=== PATIENT | female | born 1995 | race Hispanic/Latino ===

== ENCOUNTER 2024-02-16 17:38 | Emergency (ER) | payer OTHER, SELFPAY ==
--- NOTE | ~2024-02-16 | XR_ITS ---
EXAM: XR shoulder LT min 2V DATE: 02/16/2024 18:34 HISTORY: shoulder pain . COMPARISON: None available. FINDINGS: Normal mineralization. No fracture or dislocation. No lytic or blastic lesion. Joint space s are maintained. No erosion or periosteal change. Soft tissues within normal limits. IMPRESSION: No acute osseous finding in the left shoulder. Reviewed, dictated and finalized at location K.
--- NOTE | ~2024-02-16 | XR_ITS ---
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 RESULT: Lines, tubes, and devices: None. Lungs and pleura: Clear. Cardiomediastinal silhouette: Normal. Other: No acute osseous or upper abdominal finding. IMPRESSION: No acute cardiopulmonary process. Reviewed, dictated and finalized at location K.
--- NOTE | 2024-02-16 17:40 | ECG_ITS ---
Test Date: 2024-02-16 17:56:00 Measurements Intervals [place] Rate: 96 P: 51 IL: 142 QRS: 1 QRSD: 84 T: 30 QT: 338 QTc: 427 Interpretive Statements SINUS RHYTHM LOW QRS VOLTAGE IN PRECORDIAL LEADS [QRS DEFLECTION < 1.0 mV IN CHEST LEADS] No previous ECG available for comparison Electronically Signed On 02-17-2024 11:31:18 CDT by Bharathi Gomez M.D.
[2024-02-16 17:55] VITALS: BP 126/85; PULSE 100; RESP 14; TEMP 36.7; O2SAT 10
[2024-02-16 17:59] LABS: Basophils Absolute Auto 0.1 K/mm3 (0.0-0.1); Basophils Percent Auto 0.9 % (0.2-1.2); Eosinophils Absolute Auto 0.2 K/mm3 (0-0.3); Eosinophils Percent Auto 3.1 % (0-4.4); Hematocrit 41.7 % (37.0-47.0); Hemoglobin 13.9 g/dL (12.0-15.0); Immature Granulocyte Absolute 0.02 K/mm3 (0.00-0.031); Immature Granulocyte Percent A 0.3 % (0-0.5); Lymphocytes Absolute Auto 1.46 K/mm3 (0.9-3.2); Lymphocytes Percent Auto 22.8 % (18.3-44.2); Mean Corpuscular HGB Conc 33.3 g/dl (32-36); Mean Corpuscular Hemoglobin 30.1 pg (26-34); Mean Corpuscular Volume 90.3 fl (80-100); Monocytes Absolute Auto 0.4 K/mm3 (0.1-0.6); Monocytes Percent Auto 5.5 % (2.6-8.5); Neutrophils Absolute Auto 4.3 K/mm3 (1.3-6.7); Neutrophils Percent Auto 67.4 % (45.5-73.1); Platelet Count Result 273 k/mm3 (150-375); Red Blood Count 4.62 M/mm3 (4.2-5.4); Red Cell Distribution Width 12.9 % (11.5-14.5); White Blood Count 6.4 K/mm3 (4.5-10.0)
[2024-02-16 18:10] LABS: Alanine Aminotransferase 22 U/L (6-35); Albumin Level 4.7 g/dL (3.5-5.1); Alkaline Phosphatase 65 U/L (38-126); Anion Gap 10 mmol/L (4-12); Aspartate Amino Transferase 28 U/L (14-36); Bilirubin,Total 0.4 mg/dL (0.2-1.3); Blood Urea Nitrogen 7 mg/dL (7-17); Calcium 9.2 mg/dL (8.4-10.2); Carbon Dioxide 28 mmol/L (22-30); Chloride 102 mmol/L (98-107); Estimated Glomerular Filt Rate > 60; Glucose 132 mg/dL (65-110); Lipase 83 U/L (23-300); Potassium 3.4 mmol/L (3.4-5.0); Prothrombin Time 13.4 Seconds (11.1-14.7); Sodium 140 mmol/L (137-145)
[2024-02-16 18:11] LABS: Partial Thromboplastin Time 27.9 Seconds (22.3-36.8)
--- NOTE | 2024-02-16 18:20 | ED.CHESTPAIN ---
HPI - Chest Pain General Chief Complaint: Chest Pain Stated Complaint: chest pain Time Seen by Provider: 02/16/24 17:44 History of Present Illness HPI narrative: 28-year-old female with no past medical history presents to the emergency department for left-sided chest pain and arm pain for 1 day. Patient states the pain started yesterday with arm pain and then started today with chest pain. States the chest pain started while she was feeding her baby and sitting down. She states the pain is worse when she moves her upper extremity or chest. She reports associated shortness of breath. Denies nausea or vomiting, personal her cardiac history, smoking. reports her mother has a history of her disease. She denies hemoptysis, cough or congestion, fever, lower extremity edema. She has no prior history of VTE. She denies injury or trauma or chest or arm. patient is Indonesian-speaking. Related Data Allergies Allergy/AdvReac Type Severity Reaction Status Date / Time No Known Allergies Allergy Verified 02/16/24 18:04 Review of Systems Review of Systems: All systems reviewed & are unremarkable except as noted in HPI and below Exam Narrative: GENERAL: Well-appearing, well-nourished, and in no acute distress. HEAD: Normocephalic, atraumatic. EYES: PERRLA and EOMI. ENT: Nares clear, no rhinorrhea or epistaxis. Mucous membranes moist. NECK: Supple. CHEST: Clear to auscultation. No respiratory distress. Tenderness to the left chest wall extending into the left shoulder with no crepitus, step-offs or deformities HEART: Regular rate and rhythm. No murmur heard. Normal peripheral pulses. ABDOMEN: Soft, nontender, nondistended, normal active bowel sounds. EXTREMITIES: diffuse tenderness to palpation of the left shoulder and distal clavicle with full active and passive range of motion. Tenderness with anterior flexion and abduction. Radial pulse 2 +. Sensation intact. Radial, medial and ulnar nerves are intact. Negative Homans bilaterally SKIN: Warm, dry, no rash. NEURO: No focal deficits. Alert and oriented x3 Course Vital Signs Vital signs: Vital Signs Temperature 98.1 F 02/16/24 17:55 Pulse Rate 100 02/16/24 17:55 Respiratory Rate 14 02/16/24 17:55 Blood Pressure 126/85 02/16/24 17:55 Pulse Oximetry 10 L 02/16/24 17:55 Temperature 98.1 F 02/16/24 17:55 Pulse Rate 100 02/16/24 17:55 Respiratory Rate 14 02/16/24 17:55 Blood Pressure 126/85 02/16/24 17:55 Pulse Oximetry 10 L 02/16/24 17:55 Oxygen Delivery Room Air 02/16/24 18:04 MDM - Chest Pain MDM Narrative Medical decision making narrative: 28-year-old Indonesian-speaking female presents to the emergency department for left sided chest pain and arm pain for 1 day. See HPI for further history. Triage vitals are stable. exam is significant for tenderness to the left side of the chest wall extending the left shoulder tenderness to the shoulder, worse with range of motion. She has no injury or trauma to this area. She is neurovascularly intact. CBC reveals no leukocytosis or anemia. Chemistries are unremarkable. EKG shows sinus rhythm, normal W[place] interval, normal QRS duration, normal QTC, no ischemic changes. Troponin is undetectable. Lipase is normal. is negative. Chest x-ray and left shoulder pain unremarkable. EKG skin is brown with a normal W[place] interval, normal QRS duration, normal QTC, no ischemic changes. Troponin undetectable. workup discussed with the patient. She received Toradol with improvement. Suspect her symptoms are secondary to MSK etiology. This is relayed to her. Ibuprofen sent to pharmacy. Encouraged close PCP follow-up. Strict ED return precautions discussed. She is agreeable to plan verbalized understanding. Discharged in stable condition. Lab Data 02/16/24 17:51 02/16/24 17:51 Labs: Lab Results 02/16/24 02/16/24 02/16/24 Range/Units 17:51 18:19 18
[2024-02-16 18:22] LABS: Troponin I < 0.012 ng/mL (0.000-0.034)
[2024-02-16 18:27] LABS: BEDSIDEPREGUCG Negative (Negative)
[2024-02-16 18:52] LABS: Add Urine Microscopic? YES; Appearance Urine Clear (Clear); Bacteria Urine None Seen /hpf; Bilirubin Urine Negative (Negative); Blood Urine 3+ (Negative); Color Urine Yellow (Yellow); Glucose Urine UA Negative (Negative); Ketones Urine Negative (Negative); Leukocyte Esterase Ur Negative LEU/UL (Negative); Nitrate Urine Negative (Negative); Non Pathogenic Casts 0-2; Protein Urine Negative (Negative); RBC Urine 0-2 /hpf (0-2); Specific Grav Ur 1.008 (1.001-1.035); Squamous Epithelial Cell Urine Occasional /hpf (Few); Urobilinogen Urine 0.2 mg/dL (<2.0); WBC Urine 0-5 /hpf (0-3); pH Urine 5.5 (5.0-9.0)
[2024-02-16 19:18] VITALS: BP 116/70; PULSE 77; RESP 16; TEMP 36.9; O2SAT 100
[2024-02-16] MEDS: KETOROLAC 15 MG/ML VIAL (*BKC) IV PUSH (19:18)
== END 2024-02-16 19:22 | disposition home or self-care (01) ==
PROVIDERS: Emergency Medicine; Emergency Provider Physician Assistant; PCP Emergency Medicine
DX: R07.89 Other chest pain (principal); M25.512 Pain in left shoulder
CPT/HCPCS: 36415; 71046; 73030; 80053; 81001; 81025; 83690; 84484; 85025; 85610; 85730; 93005; 96374; 99284; J1885

== ENCOUNTER 2024-11-18 08:17 | Emergency (ER) | payer OTHER, SELFPAY ==
--- NOTE | ~2024-11-18 | CT_ITS ---
CT of the Abdomen and Pelvis: Indication: Abdominal pain Technique: 2.5 mm axial scans were obtained through the abdomen and pelvis following intravenous adm inistration of 100 cc of Omnipaque 350. Dose reduction technique was used on this scan by utilizing a utomated exposure control and iterative reconstruction technique. The dose-length product (DLP) was 1 83.72 mGy-cm. Findings: Scans through the lung bases are unremarkable. The liver, spleen, pancreas, gallbladder, adrenals and kidneys are within normal limits. No evidence of aortic aneurysm. No lymphadenopathy. There is mild wall thickening of sigmoid colon reflect infectious/inflammatory colitis, could be rela mack to constipation/stercoral proctitis. Images through the pelvis were performed. Urinary bladder unremarkable. Probable small bilateral ovar gen cysts. No ascites. Impression: Mild wall thickening of the sigmoid colon. Correlate for infectious/inflammatory colitis versus sterc oral proctitis. Associated constipation. Probable small bilateral ovarian cysts. Reviewed, dictated and finalized at location . Impression: Mild wall thickening of the sigmoid colon. Correlate for infectious/inflammator y colitis versus stercoral proctitis. Associated constipation. Probable small bilateral ovarian cysts.
--- OUTSIDE RECORDS SUMMARY | 2024-11-18 08:20 | XMS_ITS | Data Portability ---
Author Organization [employer] , [facility] Address [address] [place] [address] Assessment No assessment recorded. Plan of Treatment Reminders Order Date Submit Date Provider Last Modified By Organization Details Last Modified Time Details Appointments None recorded. Lab streptococc us group B, culture, unspecified specimen 2023 [facility], [address] [place], [address], 09:49:35 Referral None recorded. Procedures None recorded. Surgeries None recorded. Imaging US, obstetric, follow-up 2023 [email or web address] Not available 14:33:12 Medication Orders Depo-Topper Packer a 150 mg/mL intramuscul ar suspension 2023 [facility] [place], [address], 15:02:03 estradiol 1 mg tablet 2023 [facility], [address] [place], [address], 15:02:04 medroxyprog esterone 150 mg/mL intramuscul ar suspension 2023 [facility], [address] [place], [address], 14:28:41 Patient TargetsNo targets recorded. Patient Instructions Encounter Date Encounter Id Patient Instructions Last Modified By Organization Details Last Modified Time 12/19/2023 [id number] contraception information [email or web address] Not available 12/19/2023 11:49:40 depression education bnotzke Not available 12/19/2023 11:49:40 01/16/2024 [id number] depression after childbirth: care instructions Not available 01/16/2024 12:53:02 Care at Home With Your Baby: Care Instructions Not available 01/16/2024 12:53:01 control after counseling Not available 01/16/2024 12:53:02 02/13/2024 [id number] depression after childbirth: care instructions Not available 02/13/2024 15:01:55 Care at Home With Your Baby: Care Instructions Not available 02/13/2024 15:01:54 control after counseling Not available 02/13/2024 15:01:54 Reason for Referral None Reported. Results Created Date Observation Date Name Description Value Unit Range Abnormal Flag Note LastModifiedBy Organization Detail LastModifiedTime 12/04/19 24 12/08/2023 STREP TOCOC CUS, GROUP B CULTU RE streptococcu s, group B culture SEE NOTE STREP TOCOC CUS, GROUP B CULTU RE Micro Numbe r: [id number] Test Statu s: Final Speci men Sourc e: Recto vagin al Speci men Quali ty: Adequ ate Resul t: No group B Strep tococ cus isola mack Note per CDC guide lines optim al recov jason is achie susi by swabb ing both the lower vagin a and rectu m (thro ugh the anal sphin cter) . Not Available [facility] [address], [place], [address], 12/08/2023 09:49:35 11/26/19 24 11/26/2023 US, obste tric No observ ation record ed. [facility] [address] [place] [address], [address], 12/10/2023 08:27:08 11/30/19 24 11/30/2023 US, obste tric, bioph ysica l profi le No observ ation record ed. [facility] [address], [place], [address], 12/10/2023 08:27:36 12/04/19 24 12/04/2023 US, obste tric, follo w-up No observ ation record ed. [facility]ad[facility] [address], [place], [address], 12/05/2023 20:26:08 Result Notes None recorded. Problems Name Problem SNOMED Code Status Onset Date Resolution Date Notes Provider Name and Address Organization Details Recorded Time [id number] Completed 024 02/13/2024 Marianna martino, [employer] 14:16:49 Problem Notes None recorded. Procedures Surgical History Date Name Laterality Status Provider Name and Address Organization Details Recorded Time delivery completed Chiquis Fulton MD [address] [place], [address], [facility] [employer] 12/08/2023 15:17:21 Imaging Results None recorded. Procedure Notes None recorded. Medical Equipment None Reported. Allergies No known drug allergies Medications Name Sig Start Date Stop Date Status Note LastModified by Organization Details LastModified Time ibuprofen 800 mg tablet active Not Available Not Available Not Available estradiol 1 mg tablet TAKE 1 TABLET BY MOUTH ONCE DAILY DIRECTED active Not Available Not Available No t Available Depo-Topper Packer a 150 mg/mL intramuscul ar suspension Inject 1 mL every 3 months by intramusc ular route. 2023 active Not Available Not Available Not Avai lable promethazin e 25 mg tablet TAKE 1 TABLET BY MOUTH EVERY 6 HOURS NEEDED 12/03 completed Not Available Not Available Not Available ibuprofen 600 mg tablet TAKE 1 TABLET BY MOUTH EVERY 6 HOURS NEEDED FOR PAIN 02/12 completed Not Available Not Available Not Available oxycodone 5 mg tablet TAKE 1 TABLET BY MOUTH EVERY 4 HOURS NEEDED FOR PAIN 02/12 completed Not Available Not Available Not Available medroxyprog esterone 150 mg/mL intramuscul ar syringe INJECT 1 ML EVERY 3 MONTHS BY INTRAMUSC ULAR ROUTE active Not Available Not Available No t Available Classic 28 mg iron-800 mcg tablet TAKE 1 TABLET BY MOUTH ONCE DAILY 02/12 completed Not Available Not Available Not Available Vitals Date Recorded Body weight Body temperature Body mass index (BMI) Body height Systolic And Diastolic Provider Name and Address Organization Details Last Updated DateTime 12/04/2023 31088.95 g 98.6 [degF] 27 kg/m2 157.48 cm 112/68 mm[Hg] Marianna Snow [facility] [employer] 17:26:10 Date Recorded Body height Body mass index (BMI) Body weight Body temperature Systolic And Diastolic Provider Name and Address Organization Details Last Updated DateTime 12/19/2023 157.48 cm 24.5 kg/m2 48980.6 6 g 97.5 [degF] 110/64 mm[Hg] Kristen Doveell [facility] [employer] 11:27:16 Date Recorded Body height Body mass index (BMI) Body weight Systolic And Diastolic Provider Name and Address Organization Details Last Updated DateTime 01/16/2024 157.48 cm 24.3 kg/m2 80842.79 g 98/62 mm[Hg] Maru Corcoran [facility] [employer] IV 01/16/2024 12:39:40 Date Recorded Body height Body mass index (BMI) Body weight Body temperature Systolic And Diastolic Provider Name and Address Organization Details Last Updated DateTime 02/13/2024 157.48 cm 24.1 kg/m2 83652.1 9 g 98.2 [degF] 98/68 mm[Hg] Marianna Snow [facility] [employer] IV 14:14:09 Social History Question Answer Notes LastModified by Organizat ion Details LastModified Time Tobacco Smoking Status Never Smoker [facility] [employer] 12/04/2023 17:31:05 If You Are , What Was Your Level Of Alcohol Consumption Prior To ? None Information not available 12/04/2023 Are You Blind Or Do You Have Difficulty Seeing? No [email or web address] Information not available 12/04/2023 Are You Deaf Or Do You Have Serious Difficulty Hearing? No [email or web address] Information not available 12/04/2023 What Type Of Diet Are You Following? REGULAR Information not available 12/04/2023 How Many Children Do You Have? 1 Daughter Jade haney Information not available 12/08/2023 What Is Your Relationship Status? [email or web address] Information not available 12/08/2023 Are You Sexually Active? Yes [email or web address] Information not available 12/04/2023 Sex: Unknown Functional Status Question Answer Note LastModified by Organizat ion Details LastModified Time Do you use any illicit or recreational drugs? No [email or web address] Information not available 12/04/2023 Do you or have you ever used any other forms of tobacco or nicotine? No [email or web address] Information not available 02/13/2024 What is your level of alcohol consumption? None Information not available 12/04/2023 Do you or have you ever used smokeless tobacco? Never used smokeless tobacco [email or web address] Information not available 12/04/2023 Do you or have you ever used e-cigarettes or vape? Never used electronic cigarettes [email or web address] Information not available 12/04/2023 What is your exercise level? None [email or web address] Information not available 12/04/2023 Mental Status None recorded. Family History Relationship Description Onset Age of this Age Resolved Age Notes LastModified by Organization Details LastModified Time Father No current problems or disability [email or web address] Not available 02/12 14:15:05 Mother No current problems or disability [email or web address] Not available 02/12 14:15:05 Medical History Condition Response Other Cancer N High Blood Pressure N Colon Cancer N Cytomegalovirus N Hyperthyroidism N MRSA N Blood Transfusion N Herpes (HSV) N Breast Cancer N Lung Cancer N Depression N Hypothyroidism N Incontinence N Panic Attacks N Neurological Disorder N Deep Vein Thrombosis N Anxiety Disorder N Autoimmune disease N Arthritis N Shingles N Tuberculosis/Positive PPD N Polycystic Ovarian Syndrome N Cervical Cancer N Hematuria N Chlamydia N Varicosities N Stroke N Seasonal allergies N Crohn's Disease N Alzheimer's/Dementia N COPD/Emphysema N Endometriosis N HPV/Genital Warts N IBS (Irritable Bowel Syndrome) N History of Abnormal Pap N High Cholesterol N Liver Disease N Fibromyalgia N Kidney Infection N Ulcer N Kidney Disease N HIV N Gallbladder disease N Sickle Cell Disease/Trait N Von Willebrand disease N ADD/ADHD N Eating Disorder N Anemia N Diabetes Mellitus (non-insulin dependent ) N Ovarian Problems N Multiple Sclerosis N Gonorrhea N Frequent Urinary Tract infections N Osteopenia N Headaches/migraines N GERD (reflux) N Ovarian Cancer N Diabetes (insulin dependent) N Seizures/Epilepsy N Fibroids N Heart Attack N Asthma N Lupus N Endometrial Cancer N Rubella N Blood Clotting Disorder N Bipolar Disorder N Diabetes Mellitus (during ) N Ulcerative Colitis N Hepatitis N Heart Disease N Pulmonary Embolism N RPR N Chicken Pox N Osteoporosis N Gynecological History Statement/Question Response Date of LMP 02/12/2024 Frequency of Cycle (Q days) Date of Last Pap Smear Duration of Flow (days) 4 Current Control Method None Age at Menarche 10 Obstetrics History GPAL:G 1 P 1 0 0 1 Type Value Full Term 1 Living 1 Total 1 Past Encounters Encounter ID Performer Location Encounter Start Date Encounter Closed Date Diagnosis/Indication Diagnosis SNOMED-CT Code Diagnosis ICD10 Code Diagnosis Note [id number] Chiquis Fulton MD [facility] [address] [place] [address] 12/04/2023 16:50:38 12/06/2023 16:51:15 screening 747506200 Z36.9 GBS culture taken todayAddit ional diagnosis detail: screening encounter High risk 4720 0007 O09.893 complete placenta previa.Add itional diagnosis detail: Supervisio n of other high risk pregnancie s, third trimester Placenta p revia without hemorrhage 5396886 O44.03 Complete placenta previa. Ultrasound images reviewed today.Disc ussed with patient and partner that there is a risk of severe hemorrhage if labor begins and she should present to hospital without delay if any spotting or painful contractio ns.Deliver y will be by primary c section to avoid the hemorrhage risk of vaginal birthRevie wed the procedure and the patient was given an opportunit y to ask questions. Will schedule this week.Addit ional diagnosis detail: Placenta previa without hemorrhage in third trimester Gestation period, 37 weeks 71064351 Z3A.37 Additional diagnosis detail: 37 weeks gestation of [id number] DYAN GERBER [facility] [address] [place] [address] 12/19/2023 11:17:30 12/19/2023 12:06:21 state, 2 weeks 35078793 Z39.2 Patient is an establishe d patient, she is here for her 2 week visit. Her course was uncomplica mack. Denies pelvic pain. Denies any acute concerns. Baby and Mom are doing good. Home life is going well. -- Delivery Date: 12/07/2023 - - Baby Blues & Depression discussed. Pt denies any feelings of depression , frequent crying, or feelings of harming self or others. Educated on the warning signs of depression and when to seek medical attention. -- PNV while at reproducti ve age for benefits in early . -- Continue light activity & can start light exercise such as walking.-- Discussed no vaginal penetratio n and no tampons until 6 weeks PP.-- Discussed benefits of waiting minimum 12-18 months between pregnancie s to reduce negative outcomes.- - Lochia: Still bleeding, starting to spot. No odor.-- Uterus: Involuted- - Bowl and Bladder: Reports no issues. Discussed fiber intake, staying hydrated, and stool softeners PRN.-- Perineum: Denies redness, edema, or discharge. Discussed Perineal care witch kristina and dermoplast PRN.-- Hemorrhoid s: Denies. Discussed Witch Kristina pads, hemorrhoid balm, and stool softener PRN.-- Breasts: Pt is breast feeding. Denies breast pain, warmth, or firmness. Encouraged continuing breastfeed ing. Counseled regarding benefits for mother and baby.-- Briefly reviewed contracept sandra options & encouraged to consider preferred option for next visit.-- Safe Sleeping Instructio ns per AAP: STRONGLY ADVISED against co sleeping with infants. Infants should always sleep: on their backs, on firm surfaces, on clean surfaces, in the absence of (second hand) smoke, under light (comfortab le) blanketing , and their heads should never be covered. Avoid objects in the crib that could present hazard to infant.-- Pre-Eclamp nate S/S reviewed in detailed. Cautioned pt to be seen right away in office or at hospital if KITCHEN, visual changes (floaters, narrowing, and/or shortening of vision), RUQ/epigas tric pain). If checking BP's at home - target range reviewed - >150/90 go to hospital for evaluation . - RTO in 4 weeks for full physical exam Maternal p ostpartum depression screening 3521994420 94541 Z13.32 Contracept ion care education 588329886 Z30.09 Contracept sandra counseling : Discussed options including OCPs, NuvaRing, Nexplanon, hormonal and copper IUDs. Discussed risks, efficacy, non contracept sandra benefits, and side effects of each option, including risk of VTE with hormonal contracept ion and uterine perforatio n, expulsion, infection with IUD. Discussed risks of CHCs in PP and with breastfeed ing. [id number] Chiquis Fulton MD [facility] [address] [place] [address] 01/16/2024 12:10:51 01/21/2024 19:19:18 state 08042605 Z39.2 doing well after her delivery by primary c section. No evidence of complicati ons.Bottle feeding. Baby doing well Depression screening 171 424377 Z13.31 See Screening Section for EPDS Questionna nany Result Uses depot contraception 255107243 Z30.42 desires to use depo provera for contracept ion [id number] Benito Tavarez MD [facility] [address] [place] [address] 02/13/2024 13:54:57 02/25/2024 14:32:47 state 32686047 Z39.2 discussed breast feeding and control and minipill and also any progestero ne type and will switch to combinatio n pill after breast feedingwil l see in 10-12 months for yearly or sooner if neededalso discussed timing of second and waiting 15 months before attempting to get for medical reasons which were discussed with the patientDis cussed hot flashes and thigh numbness and getting better both and discussed more protein intake. Depression screening 171 Z13.31 See Screening Section for EPDS Questionna nany Result Health Concerns Section Related Observation LastModified by Organization Detai ls LastModified Time None Recorded Concern Status LastModified by Organization Details LastModified Time None Recorded Advance Directives Directive None Recorded Payers Insurance Date Sequence Insurance Name Policy Number Policy Manrique Covered Member ID Manrique Member ID Guarantor Name 02/25/2024 1 [facility] ON OR AFTER 11/11/20 (MEDICAID REPLACEMENT - HMO) Luisa Fernandez [id number] Luisa Phan Notes Date Note Type Note Provider Name and Address Organization Details Recorded Time 12/04/2023 text/html Luisa is a 28 ye ar old who is here for her initial OB visit with us.She initiated care at [facility] mother child center in [place], was referred to [facility] maternal medicine due to placenta previa.She has been followed regularly there however, had not established with primary delivering OB.Delivery was advised for 37 wks, and she is now 37 wks.She reports having had bleeding about 2 wks ago and she went to labor and delivery, however the bleeding stopped and has not recurred.She and [place] partner are from [place] and do not speak EnglishShe had ultrasound today This visit is completed with assistance of a executive chef Chiquis Fulton MD [address] [place] [address], [phone], [employer] 12/05/2023 21:34:00 12/19/2023 text/html VisitReported bypatient.Onset/Venkat ing:date of delivery: (12/07/2023) Quality:primary C/S Context:feeding choice: breast and bottle Luisa is here for her visit and incision check. Pt states she has no concerns. TONYA GERBER-PATRICK [address] [place] [address], [phone], [employer] 12/19/2023 11:50:21 01/16/2024 text/html Luisa is being s een today for 4 wk follow up from her scheduled c section [facility] which was done 12/07/23 due to placenta previa.She is formula feeding. baby did not latch well and she feels the milk has dried upShe is doing well as far as painShe had stopped bleeding, but just started again, fairly heavy flow Chiquis Fulton MD [address] [place] [address], [phone], [employer] 01/19/2024 17:31:41 02/13/2024 text/html VisitReported bypatient.Onset/Venkat ing:date of delivery: (12-07-23) Quality:primary C/S Context:feeding choice: bottle; good support from partner/family; resumed sexual activity; resumed menstrual bleeding yes Associated Symptoms:no abnormal bleeding; no vaginal discharge; no pelvic pain; laceration well healed; no constipation; no fecal incontinence; no dysuria; no urinary incontinence; no fever; no problems; no mastitis; normal mood The patient verbally consented to documentation via virtual scribe for this encounter. Luisa Kimble is a 28-year-old female who is here for 6 week visit. Patient stated that her menstrual has been heavier since having the baby. She also stated that she is having pain with intercourse as well. She is currently on her menses. She denies any moles or changes in skin color. She reports noticing a spot on her thigh that gets warm and goes numb and not as bad. She does report some episodes of feeling hot and her blood pressure 139/90. She denies these episodes with and no HAs w/ episode Benito Tavarez MD [facility] [place], [address], [facility] 02/23/2024 15:11:32 OBGyn Episode Ob Episode Information Episode Created Date Number of Fetuses Patient Bloodtype Patient rh Status Prepregnancy Weight lbs Domestic Partner Domestic Partner Phone Father Name Japanese Interpreter Status 12/04/19 1 CLOSED Fetus Data First Name Last Name Admitted to NICU Weight (g) Sex Living Outcome Pediatric Complications Fetus ID Race Codes Race Delivery Type Jade false 2891.64 9 F true Full Term [id number] Repeat Anthony Calculation Initial Anthony Date Initial Exam Date Initial Exam Provider Initial Ultrasound Date Last Menstrual Period Date Ultra Sound Weeks Gestation 12/04/2023 03/20/2023 0 Eighteen To Twenty Week Anthony Update Ultra Sound Date Fundal Height At Umbil Quickening Date Ultra Sound Latest Weeks Gestation Final Anthony Confirmed By Final Anthony Confirmed Date Final Anthony Date Ultra Sound Latest Days Gestation 0 12/25/19 24 0 Pre-melissa Flowsheet Flowsheet Date 12/04/2023 Mason Score Blood Edema Fundus Height Fundus Units Glucose Ketones Leukocytes Nitrite Labor Signs Protein Cervic Dilation Cervic Effacement Cervic Station none Type Weight in lbs Pre/Post Dialysis Refused Weight 147.47905455344 BP Diastolic BP Location Tested BP Systolic BP Type 68 112 Fetus Heart Rate Present A 130 Present Fetus Movement A Yes Comments New OB, transfer of care [facility] family practice. Has been seeing MFM. Pt has complete placenta previa. Was adv by MFM that she needs to be delivered soon by c section. Denies bleeding but has had some contractions the past 2 nights off and on. Flowsheet Date 12/19/2023 Mason Score Blood Edema Fundus Height Fundus Units Glucose Ketones Leukocytes Nitrite Labor Signs Protein Cervic Dilation Cervic Effacement Cervic Station Type Weight in lbs Pre/Post Dialysis Refused With clothes 133.597232509267 BP Diastolic BP Location Tested BP Systolic BP Type 64 110 sitting Fetus Heart Rate Present Fetus Movement Comments Flowsheet Date 01/16/2024 Mason Score Blood Edema Fundus Height Fundus Units Glucose Ketones Leukocytes Nitrite Labor Signs Protein Cervic Dilation Cervic Effacement Cervic Station Type Weight in lbs Pre/Post Dialysis Refused With clothes 133.637641160479 BP Diastolic BP Location Tested BP Systolic BP Type 62 L arm 98 sitting Fetus Heart Rate Present Fetus Movement Comments Flowsheet Date 02/13/2024 Mason Score Blood Edema Fundus Height Fundus Units Glucose Ketones Leukocytes Nitrite Labor Signs Protein Cervic Dilation Cervic Effacement Cervic Station Type Weight in lbs Pre/Post Dialysis Refused Weight 132.030525952987 BP Diastolic BP Location Tested BP Systolic BP Type 68 98 Fetus Heart Rate Present Fetus Movement Comments Menstrual History Last Menstrual Date Menses Monthly On Bcp Conception Prior Menses Frequency Hcg Plus Date Menarche Onset Age 1103/20/2023 Delivery Information Delivery Date Delivery Type Labor Anesthesia Weeks Gestation Incision Type Labor Labor Length Hrs Delivered By Post Complications Tubal Sterilization Discharge Date Comments 4 None Regional-Ep idural 37.3 Low Transvers e Chiquis Ko MD Hypertension 12/09/2023 Discharge Information Feeding Method Contraceptive Method Maternal HG B and HCT Levels Breast
--- OUTSIDE RECORDS SUMMARY | 2024-11-18 08:20 | XMS_ITS | Clinical Summary ---
Author Organization [facility] Address [address] [place] [address] Care Team Providers Care Chief Engineer Drilling And Recovery Name Role Phone Unknown, Provider Primary Care Provider Unavaila ble Source Comments [facility],non-owned Affiliates and Associated Physician Practices is amultiple site organization consisting of ambulatory clinics and hospital sitesin [place], [place], [place] and [place]. This disclosure is being madepursuant to the Care Everywhere program and may not contain all information available regarding this patient. Last updated 18.[facility] [employer] Social History Tobacco Use Types Packs/Day Years Used Date Smoking Tobacco: Never Assessed Comments No Sex and Gender Information Value Date Recorded Sex Assigned at Not on file Legal Sex Female 3:59 PM CDT Gender Identity Not on file Sexual Orientation Not on file Last Filed Vital Signs Vital Sign Reading Time Taken Comments Blood Pressure 106/60 11/30/2023 7:56 AM CDT Pulse 88 11/30/2023 7:56 AM CDT Temperature - - Respiratory Rate 18 11/30/2023 7:56 AM CDT Oxygen Saturation - - Inhaled Oxygen Concentration - - Weight - - Height - - Body Mass Index - - Plan of Treatment Health Maintenance Due Date Last Done Comments HIV SCREENING 2008 HEPATITIS C SCREENING 05/22/2011 DTAP/TDAP/TD VACCINES (1 - Tdap) 2012 HEPATITIS B VACCINE (1 of 3 - 19+ 3-dose series) 2012 PAP SMEAR 2014 COVID-19 VACCINE ( - 2023-2 5 season) 2024 DEPRESSION SCREENING 05/14/2024 INFLUENZA VACCINE (#1) 2025 ZOSTER VACCINE (1 of 2) 2043 HIB VACCINE Aged Out No longer eligi ble based on patient's age to complete this topic HPV VACCINE Aged Out No longer eligi ble based on patient's age to complete this topic MENINGOCOCCAL (Group B) VACC INE SHARED DECISION-MAKING Aged Out No longer eligibl e based on patient's age to complete this topic MENINGOCOCCAL GROUPS A/C/Y/W VACCINE Aged Out No longer eligible b ased on patient's age to complete this topic PNEUMOCOCCAL VACCINE Aged Out No long er eligible based on patient's age to complete this topic Insurance Care Teams Chief Engineer Drilling And Recovery Relationship Specialty Start Date End Date Unknown, Provider PCP - General 09/05/23
--- OUTSIDE RECORDS SUMMARY | 2024-11-18 08:20 | XMS_ITS | Data Portability ---
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 Atypical chest pain which is reproducible with light palpation to the chest wall and deep inspiration. I recommended her to take Tylenol 1000 mg q.6 hours as needed I will see her again in 6 weeks and make further recommendation after reviewing her event monitor. [email or web address] Not available 09/16/2024 10:55:05 10/28/2024 10/28/2024 Palpitation , I recommended her to have a event monitor for 30 days to evaluate heart rate and rhythm. Atypical chest pain which is reproducible with light palpation to the chest wall and deep inspiration. I recommended her to take Tylenol 1000 mg q.6 hours as needed I will see her again in 6 weeks and make further recommendation after reviewing her event monitor. October 28, 2024: Palpitation, no significant arrhythmia was noted when she worked this monitored for only 3 days Atypical chest pain, reproducible on palpation to the chest wall. I recommended her to take Tylenol or Aleve as needed for pain. I will see her again if needed. 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, [address], [place], [address], 08/11/2024 22:07:51 CMP, serum or plasma 2024 025 YOSHI MARLEN, [facility] [address], [address], [place], [address], 08/11/2024 22:07:49 TSH + free T4, serum 2024 025 YOSHI MARLEN, [facility] [address], [address], [place], [address], 08/12/2024 08:29:10 vitamin D, 25-hydro xy, total, serum 2024 025 YOSHI NOVOANICK, [facility] [address], [address], [place], [address], 08/12/2024 08:29:15 HIV 1 + 2, meaningf ul use set 2024 025 YOSHI MARLEN, Jo AnnRivka sandra [address], [address], [place], [address], 08/12/2024 08:29:16 HbA1c (hemoglo bin A1c), blood 2024 025 [facility], [address] [facility], [address], [place], [address], 08/12/2024 08:29:13 cobalami n and folate panel, serum 2024 025 [facility], [address] [place] [address], [address], [place], [address], 08/12/2024 08:29:11 iron + total iron-bin ding capacity (TIBC), serum 2024 025 [facility], [address] [place] [address], [address], [place], [address], 08/12/2024 08:29:12 ferritin , serum or plasma 2024 025 [facility], [address] [place] [address], [address], [place], [address], 08/12/2024 08:29:14 Referral cardiolo gist referral 2024 025 maame Marshall MD, [address], [address], [place], [address], 08/13/2024 16:43:32 Procedures None recorded . Surgeries None recorded . 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 025 YOSHI [facility], [address], [address], [place], [address], 10/27/2024 13:34:18 US, abdomen, complete 2024 025 [facility] ([facility] [address] [place], [address], 10/31/2024 09:38:51 electroc ardiogra m 2024 025 [facility] In-Office Order, Internal Use Only DO Not Attach Compendium DO Not Attach Compendium, Do Not Delete/merge, [id number] 08/11/2024 10:08:52 Medication Orders topirama te 50 mg tablet 2024 025 [facility], [address] [place] [address], [address], 10/27/2024 15:27:43 ammonium lactate 12 % lotion 2024 025 [facility], [address] [place] [address], [address], 10/27/2024 15:27:41 Linzess 145 mcg capsule 2024 025 [facility], [address] [place] [address], [address], 10/27/2024 15:27:42 omeprazo le 20 mg capsule, delayed release 2024 025 [facility], [address] [place] [address], [address], 10/27/2024 15:30:57 topirama te 25 mg tablet 2024 025 [facility], [address] [place] [address], [address], 09/16/2024 10:51:05 ibuprofe n 800 mg tablet 2024 025 [facility], [address] [place] [address], [address], 10/27/2024 14:53:43 Debrox 6.5 % ear drops 2024 025 [facility], [address] [place], [address], 09/04/2024 16:52:25 Miralax 17 gram/dos e oral powder 2024 025 [facility], [address] [place], [address], 08/11/2024 10:02:02 Patient TargetsNo targets recorded. Patient Instructions Encounter Date Encounter Id Patient Instructions Last Modified By Organization Details Last Modified Time 08/11/2024 [id number] dolor de leighann: instrucciones de cuidado - [headache: care instructions] [email or web address] Not available 08/11/2024 10:01:30 palpitaciones: instrucciones de cuidado - [palpitations: care instructions] [email or web address] Not available 08/11/2024 10:01:30 estre imiento: instrucciones de cuidado - [constipation: care instructions] [email or web address] Not available 08/11/2024 10:01:30 10/27/2024 [id number] Keep a headache diary to see if you can determine what are your headache/migraine triggers Take medicine as directed for migraine prophylaxis Take breakthrough headache medicine as soon as you feel headache coming on Lay in a dark room if possible and try to relax Drink plenty of water, get appropriate rest, try auto relaxation, avoid triggers if known get u/s as soon as possible Drink at least 65 ounces of water daily Increase fiber ie fruit vegetables May try Fiber One or Raisin BRan May add Flaxseed Powder 1-3 Tablespoons in liquids or salads etc., If several days with no BMs 4-5 days may try Miralax as per bottle directions [email or web address] Not available 10/27/2024 16:51:59 Reason for Referral Sensitized Paper Tester Referral for Pa lpitations Palpitations Referring Physician: Jimmy Mtz, Family Medicine, Encounter Date: 08/11/2024 Results Created Date Observation Date Name Description Value Unit Range Abnormal Flag Note LastModifiedBy Organization Detail LastModifiedTime 08/12/1908/11/2024 LIPID PANEL cholesterol, total 202 mg/dL 100-19 9 above high normal Not Available [facility] Department [address] [place], [address], 08/11/2024 22:07:48 08/12/19 25 08/11/2024 LIPID PANEL triglyceride s 202 mg/dL 0-149 above high normal Not Available [facility] Department [address] [place], [address], 08/11/2024 22:07:48 08/12/19 25 08/11/2024 LIPID PANEL HDL cholesterol 46 mg/dL 40-999 Not Available [facility] Department [address] [place], [address], 08/11/2024 22:07:48 08/12/19 25 08/11/2024 LIPID PANEL VLDL cholesterol nader 40 mg/dL 5-40 Not Available [facility] Department [address] [place], [address], 08/11/2024 22:07:48 08/12/19 25 08/11/2024 LIPID PANEL LDL chol calc (nih) 145 mg/dL 0-99 above high normal Not Available [facility] Department [address] [place], [address], 08/11/2024 22:07:48 08/12/19 25 08/11/2024 COMP. METAB OLIC PANEL (14) glucose 98 mg/dL 70-99 Not Available [facility] Department [address] [place], [address], 08/11/2024 22:07:49 08/12/19 25 08/11/2024 COMP. METAB OLIC PANEL (14) BUN 5 mg/dL 6-20 below low normal Not Available [facility] Department [address] [place], [address], 08/11/2024 22:07:49 08/12/19 25 08/11/2024 COMP. METAB OLIC PANEL (14) creatinine 0.49 mg/dL 0.76-1 .27 below low normal Not Available [facility] Department [address] [place], [address], 08/11/2024 22:07:49 08/12/19 25 08/11/2024 COMP. METAB OLIC PANEL (14) eGFR 129 >=60 Units for eGFR value s are mL/mi n/1.7 3 The eGFR Calcu latio n has not been valid ated for patie nts under the age of 18. If test resul ts are displ ayed for a patie nt under the age of 18, disre aislinn that value . Not Available [facility] Department [address] [place] [address], [address], 08/11/2024 22:07:49 08/12/19 25 08/11/2024 COMP. METAB OLIC PANEL (14) BUN/creatini ne ratio 11 9-23 Not Available [facility] Department [address] [place] [address], [address], 08/11/2024 22:07:49 08/12/19 25 08/11/2024 COMP. METAB OLIC PANEL (14) sodium 144 mmol/ L 134-14 4 Not Available [facility] Department [address] [place], [address], 08/11/2024 22:07:49 08/12/19 25 08/11/2024 COMP. METAB OLIC PANEL (14) potassium 4.8 mmol/ L 3.5-5. 2 Not Available [facility] Department [address] [place] [address], [address], 08/11/2024 22:07:49 08/12/19 25 08/11/2024 COMP. METAB OLIC PANEL (14) chloride 107 mmol/ L 96-106 above high normal Not Available [facility] Department [address] [place], [address], 08/11/2024 22:07:49 08/12/19 25 08/11/2024 COMP. METAB OLIC PANEL (14) carbon dioxide, total 25 mmol/ L 20-29 Not Available [facility] Department [address] [place], [address], 08/11/2024 22:07:49 08/12/19 25 08/11/2024 COMP. METAB OLIC PANEL (14) calcium 9.4 mg/dL 8.7-10 .2 Not Available [facility] Department [address] [place], [address], 08/11/2024 22:07:49 08/12/19 25 08/11/2024 COMP. METAB OLIC PANEL (14) protein, total 7.2 g/dL 6.0-8. 5 Not Available [facility] Department [address] [place], [address], 08/11/2024 22:07:49 08/12/19 25 08/11/2024 COMP. METAB OLIC PANEL (14) albumin 4.5 g/dL 3.9-4. 9 Not Available [facility] Department [address] [place], [address], 08/11/2024 22:07:49 08/12/19 25 08/11/2024 COMP. METAB OLIC PANEL (14) globulin, total 2.7 g/dL 1.5-4. 5 Not Available [facility] Department [address] [place], [address], 08/11/2024 22:07:49 08/12/19 25 08/11/2024 COMP. METAB OLIC PANEL (14) A/G ratio 2.0 1.2-2. 2 Not Available [facility] Department [address] [place], [address], 08/11/2024 22:07:49 08/12/19 25 08/11/2024 COMP. METAB OLIC PANEL (14) bilirubin, total 0.2 mg/dL 0.0-1. 2 Not Available [facility] Department [address] [place], [address], 08/11/2024 22:07:49 08/12/19 25 08/11/2024 COMP. METAB OLIC PANEL (14) alkaline phosphatase 76 IU/L 44-121 Not Available [facility] Department [address] [place], [address], 08/11/2024 22:07:49 08/12/19 25 08/11/2024 COMP. METAB OLIC PANEL (14) AST (SGOT) 16 U/L 0-40 Not Available [facility] Department [address] [place], [address], 08/11/2024 22:07:49 08/12/19 25 08/11/2024 COMP. METAB OLIC PANEL (14) ALT (SGPT) 13 IU/L 0-32 Not Available [facility] Department [address] [place] [address], [address], 08/11/2024 22:07:49 08/12/19 25 08/11/2024 CBC WITH DIFFE RENTI AL/PL ATELE T WBC 4.9 x10e3 /uL 3.4-10 .8 Not Available [facility] Department [address] [place], [address], 08/11/2024 22:07:50 08/12/19 25 08/11/2024 CBC WITH DIFFE RENTI AL/PL ATELE T RBC 4.74 x10e6 /uL 3.77-5 .28 Not Available [facility] Department [address] [place], [address], 08/11/2024 22:07:50 08/12/19 25 08/11/2024 CBC WITH DIFFE RENTI AL/PL ATELE T hemoglobin 13.5 g/dL 11.1-1 5.9 Not Available [facility] Department [address] [place] [address], [address], 08/11/2024 22:07:50 08/12/19 25 08/11/2024 CBC WITH DIFFE RENTI AL/PL ATELE T hematocrit 43.2 % 34.0-4 6.6 Not Available [facility] Department [address] [place], [address], 08/11/2024 22:07:50 08/12/19 25 08/11/2024 CBC WITH DIFFE RENTI AL/PL ATELE T MCV 91 fL 79-97 Not Available [facility] Department [address] [place], [address], 08/11/2024 22:07:50 08/12/19 25 08/11/2024 CBC WITH DIFFE RENTI AL/PL ATELE T MCH 28.5 pg 26.6-3 3.0 Not Available [facility] Department [address] [place], [address], 08/11/2024 22:07:50 08/12/19 25 08/11/2024 CBC WITH DIFFE RENTI AL/PL ATELE T MCHC 31.3 g/dL 31.5-3 5.7 below low normal Not Available [facility] Department [address] [place], [address], 08/11/2024 22:07:50 08/12/19 25 08/11/2024 CBC WITH DIFFE RENTI AL/PL ATELE T RDW 13.2 % 11.5-1 4.5 Not Available [facility] Department [address] [place], [address], 08/11/2024 22:07:50 08/12/19 25 08/11/2024 CBC WITH DIFFE RENTI AL/PL ATELE T platelets 271 x10e3 /uL 150-45 0 Not Available [facility] Department [address] [place], [address], 08/11/2024 22:07:50 08/12/19 25 08/11/2024 CBC WITH DIFFE RENTI AL/PL ATELE T neutrophils 63 % notest b. Not Available [facility] Department [address] [place], [address], 08/11/2024 22:07:50 08/12/19 25 08/11/2024 CBC WITH DIFFE RENTI AL/PL ATELE T lymphs 25 % notest b. Not Available [facility] Department [address] [place], [address], 08/11/2024 22:07:50 08/12/19 25 08/11/2024 CBC WITH DIFFE RENTI AL/PL ATELE T monocytes 8 % notest b. Not Available [facility] Department [address] [place], [address], 08/11/2024 22:07:50 08/12/19 25 08/11/2024 CBC WITH DIFFE RENTI AL/PL ATELE T eos 3 % notest b. Not Available [facility] Department [address] [place], [address], 08/11/2024 22:07:50 08/12/19 25 08/11/2024 CBC WITH DIFFE RENTI AL/PL ATELE T basos 1 % notest b. Not Available [facility] Department [address] [place], [address], 08/11/2024 22:07:50 08/12/19 25 08/11/2024 CBC WITH DIFFE RENTI AL/PL ATELE T neutrophils (absolute) 3.1 x10e3 /uL 1.4-7. 0 Not Available [facility] Department [address] [place], [address], 08/11/2024 22:07:50 08/12/19 25 08/11/2024 CBC WITH DIFFE RENTI AL/PL ATELE T lymphs (absolute) 1.2 x10e3 /uL 0.7-3. 1 Not Available [facility] Department [address] [place], [address], 08/11/2024 22:07:50 08/12/19 25 08/11/2024 CBC WITH DIFFE RENTI AL/PL ATELE T monocytes(ab solute) 0.4 x10e3 /uL 0.1-0. 9 Not Available [facility] Department [address] [place], [address], 08/11/2024 22:07:50 08/12/19 25 08/11/2024 CBC WITH DIFFE RENTI AL/PL ATELE T eos (absolute) 0.1 x10e3 /uL 0.0-0. 4 Not Available [facility] Department [address] [place], [address], 08/11/2024 22:07:50 08/12/1908/11/2024 CBC WITH DIFFE RENTI AL/PL ATELE T baso (absolute) 0.0 x10e3 /uL 0.0-0. 2 Not Available [facility] Department [address] [place], [address], 08/11/2024 22:07:50 08/12/19 25 08/11/2024 CBC WITH DIFFE RENTI AL/PL ATELE T immature granulocytes 0.2 % notest b. Not Available [facility] Department [address] [place], [address], 08/11/2024 22:07:50 08/12/19 25 08/11/2024 CBC WITH DIFFE RENTI AL/PL ATELE T immature grans (abs) 0.0 x10e3 /uL 0.0-0. 1 Not Available [facility] Department [address] [place], [address], 08/11/2024 22:07:50 08/12/19 25 08/11/2024 CBC WITH DIFFE RENTI AL/PL ATELE T NRBC 0 % 0-0 Not Available [facility] Department [address] [place], [address], 08/11/2024 22:07:50 08/12/19 25 08/12/2024 TSH+F REE T4 TSH 0.984 uIU/m L 0.450- 4.500 Not Available [facility] ([facility]) [address] [facility] [place], [address], 08/12/2024 08:29:09 08/12/19 25 08/12/2024 TSH+F REE T4 T4,free(dire ct) 1.17 NG/dL 0.82-1 .77 Not Available [facility] ([facility]) [address] [facility] [place], [address], 08/12/2024 08:29:09 08/12/19 25 08/12/2024 VITAM IN B12 AND FOLAT E vitamin B12 1276 pg/mL 232-12 45 above high normal Not Available [facility] ([facility]) [address] [facility], [place], [address], 08/12/2024 08:29:11 08/12/1908/12/2024 VITAM IN B12 AND FOLAT E folate (folic acid), serum 13.1 NG/mL >3.0 A serum folat e sara ntrat ion of less than 3.1 ng/mL is consi dered to repre sent clini nader defic iency . Not Available [facility] ([facility]) [address] [place], [address], 08/12/2024 08:29:11 08/12/1908/12/2024 IRON AND TIBC iron bind.cap.(TI BC) 361 ug/dL 250-45 0 Not Available [facility] ([facility]) [address] [place], [address], 08/12/2024 08:29:12 08/12/19 25 08/12/2024 IRON AND TIBC UIBC 332 ug/dL 131-42 5 Not Available [facility] ([facility]) [address] [place], [address], 08/12/2024 08:29:12 08/12/19 25 08/12/2024 IRON AND TIBC iron 29 ug/dL 27-159 Not Available [facility] ([facility]) [address] [facility], [place], [address], 08/12/2024 08:29:12 08/12/19 25 08/12/2024 IRON AND TIBC iron saturation 8 % 15-55 alert low Not Available [facility] ([facility]) [address] [facility], [place], [address], 08/12/2024 08:29:12 08/12/19 25 08/12/2024 HEMOG LOBIN A1C hemoglobin A1C 5.6 % 4.8-5. 6 Predi abete s: 5.7 - 6.4 Diabe citlalli: >6.4 Glyce bridget contr ol for adult s with diabe citlalli: <7.0 Not Available [facility] ([facility]) [address] [facility], [place], [address], 08/12/2024 08:29:13 08/12/19 25 08/12/2024 ANEUDY TIN ferritin 40 NG/mL 15-150 Not Available [facility] ([facility]) [address] [place], [address], 08/12/2024 08:29:14 08/12/19 25 08/12/2024 VITAM IN D, 25-HY DROXY vitamin D, 25-hydroxy 15.9 NG/mL 30.0-1 00.0 below low normal Vitam in D defic iency has been defin ed by the Insti tute of Medic ine and an Endoc rine Socie ty pract ice guide line as a level of serum 25-OH vitam in D less than 20 ng/mL (1,2) . The Endoc rine Socie ty went on to furth er defin e vitam in D insuf ficie ncy as a level betwe en 21 and 29 ng/mL (2). 1. IOM (Inst itute of Medic ine). 2010. Dieta ry refer ence sameer es for calci um and DCollins mario DC: The Natio nal [employer] m[employer] . 2. Jeovany rodriguez MF, Denilson ey [place], Merry off-F errar i KITCHEN, et al. Evalu ation , treat ment, and preve ntion of vitam in D defic iency : an Endoc rine Socie ty clini nader pract ice guide line. JCEM. 2010; 96(7) :1911 -30. Not Available [facility] ([facility]) [address] [facility], [place], [address], 08/12/2024 08:29:15 08/12/19 25 08/12/2024 HIV AB/P2 4 AG WITH REFLE X HIV Ab/P24 Ag screen NON REACTI VE nonrea ctive HIV-1 /HIV- 2 antib odies and HIV-1 p24 antig en were NOT detec mack. There is no labor atory evide nce of HIV infec tion. HIV Negat sandra Not Available [facility] ([facility]) [address] [facility], [place], [address], 08/12/2024 08:29:16 09/17/19 25 09/17/2024 SEDIM ENTAT ION RATE- WESTE RGREN sedimentatio n rate-westerg linda 6 mm/HR 0-32 Not Available [facility] ([facility]) [address] [facility], [place], [address], 09/17/2024 09:43:36 08/12/19 25 08/11/2024 elect rocar diogr am No observ ation record ed. YOSHI In-Office Order Internal Use Only DO Not Attach Compendium DO Not Attach Compendium, Do Not Delete/merge, [id number] 09/02/2024 08:24:38 09/17/19 25 09/16/2024 elect rocar diogr am No observ ation record ed. YOSHI In-Office Order Internal Use Only DO Not Attach Compendium DO Not Attach Compendium, Do Not Delete/merge, [id number] 09/16/2024 11:07:50 09/17/19 elect rocar diogr am No observ ation record ed. [facility] Not Available 09/16 11:07:51 10/28/19 25 event monit or No observ ation record ed. [employer] [address], [place], [address], 10/27/2024 13:36:56 10/31/19 25 10/29/2024 US, abdom en, compl ete No observ ation record ed. [facility] ([facility]) [address], [place], [address], 10/31/2024 09:38:51 Result Notes None recorded. Problems Name Problem SNOMED Code Status Onset Date Resolution Date Notes Provider Name and Address Organization Details Recorded Time Pregnanc y 85055849 Completed 202305/20/2024 Sunita Chopra RN [facility], [place] - [facility] 5 15:48:10 Placenta previa 63113532 Completed Transfer care to OB. Bertha Navas MD Attn: Accountin g,[address] [place], [address], [place] - [facility] 5 12:21:58 Glucose toleranc e test outside referenc e range 333886735 Completed 3 hr GTT ordered - pt completin g today. Bertha Navas MD Attn: Accountin g,[address] [facility], [place], [address], [place] [facility] 5 12:21:58 Vitamin D deficien cy 79818120 Active 2024 JIMMY MTZ PA-C Attn: Accountin g,[address] [facility], [place], [address], [place] [facility] 5 08:49:33 Hyperlip idemia 78617301 Active 2024 JIMMY MTZ PA-C Attn: Accountin g,[address] [facility], [place], [address], [place] [facility] 5 08:49:40 Palpitat ions 21697267 Active 2024 Molly Hendrickson MA null, [facility] 17:14:38 Atypical chest pain 720820661 Active 2024 Molly Hendrickson MA null, [facility] 17:14:52 Upper abdomina l pain 23421424 Active [address] [facility] Attn: Smith flores,[address], [place], [address], [facility] 5 15:29:32 Migraine without aura, not refracto ry 071533110 Active [address] [facility] Attn: Smith flores,[address], [place], [address], [facility] 16:49:40 Problem Notes None recorded. Procedures Surgical History Date Name Laterality Status Provider Name and Address Organization Details Recorded Time section completed Moustapha Milian MA [facility] 08/11/2024 09:25:07 Imaging Results None recorded. Procedure Notes None recorded. Medical Equipment None Reported. Allergies No known drug allergies Medications Name Sig Start Date Stop Date Status Note LastModified by Organization Details LastModified Time ammonium lactate 12 % lotion APPLY LOTION TOPICALLY TWICE DAILY active Not Available Not Available No t Available ibuprofen 800 mg tablet TAKE 1 TABLET BY MOUTH THREE TIMES DAILY FOR HEADACHE 10/27 completed Not Available Not Available Not Available Debrox 6.5 % ear drops INSTILL 5 DROPS INTO AFFECTED EAR(S) BY OTIC ROUTE 2 TIMES PER DAY 09/04 completed Not Available Not Available Not Available topiramate 25 mg tablet Take 1 tablet twice a day by oral route for 30 days. 09/16 completed Not Available Not Available Not Available aspirin 81 mg tablet,krysta yed release Take 1 tablet every day by oral route. 08/11 completed Not Available Not Available Not Available estradiol 1 mg tablet TAKE 1 TABLET BY MOUTH ONCE DAILY DIRECTED 08/11 completed Not Available Not Available Not Available promethazin e 25 mg tablet TAKE 1 TABLET BY MOUTH EVERY 6 HOURS NEEDED 08/11 completed Not Available Not Available Not Available omeprazole 20 mg capsule,del ayed release TAKE 1 CAPSULE BY MOUTH ONCE DAILY BEFORE MEAL(S) active Not Available Not Available No t Available ibuprofen 600 mg tablet TAKE 1 TABLET BY MOUTH EVERY 6 HOURS NEEDED FOR PAIN 08/11 completed Not Available Not Available Not Available polyethylen e glycol 3350 17 gram/dose oral powder MIX 17 GRAMS OF POWDER IN 8 OUNCES OF LIQUID AND DRINK ONCE DAILY active Not Available Not Available No t Available oxycodone 5 mg tablet TAKE 1 TABLET BY MOUTH EVERY 4 HOURS NEEDED FOR PAIN 08/11 completed Not Available Not Available Not Available medroxyprog esterone 150 mg/mL intramuscul ar syringe INJECT 1 ML EVERY 3 MONTHS BY INTRAMUSC ULAR ROUTE 08/11 completed Not Available Not Available Not Available topiramate 50 mg tablet TAKE 1 TABLET BY MOUTH TWICE DAILY active Not Available Not Available No t Available cholecalcif iris (vitamin D3) 1,250 mcg (50,000 unit) capsule TAKE 1 CAPSULE BY MOUTH ONCE A WEEK active Not Available Not Available No t Available 28 mg iron-800 mcg tablet Take 1 tablet every day by oral route. 08/11 completed Not Available Not Available Not Available Linzess 145 mcg capsule TAKE 1 CAPSULE BY MOUTH ONCE DAILY FOR CONSTIPAT ION active Not Available Not Available No t Available Classic 28 mg iron-800 mcg tablet TAKE 1 TABLET BY MOUTH ONCE DAILY 08/11 completed Not Available Not Available Not Available Vitals Date Recorded Body height Body mass index (BMI) Body weight Body temperature Oxygen saturation Oxygen saturation in Arterial blood by Pulse oximetry Heart rate Systolic And Diastolic Provider Name and Address Organization Details Last Updated DateTime 5 152.4 cm 24.4 kg/m2 55045.0 5 g 97.9 [degF] 98 % 98 % 86 /min 108/66 mm[Hg] Moustapha Milian [place] - [facility] 5 09:28:33 Date Recorded Body height Body mass index (BMI) Body weight Body temperature Oxygen saturation Oxygen saturation in Arterial blood by Pulse oximetry Heart rate Systolic And Diastolic Provider Name and Address Organization Details Last Updated DateTime 5 152.4 cm 23.8 kg/m2 68246.2 7 g 98.1 [degF] 98 % 98 % 74 /min 98/64 mm[Hg] Moustapha Milian MA [facility] 5 16:56:02 Date Recorded Body height Body mass index (BMI) Body weight Oxygen saturation Oxygen saturation in Arterial blood by Pulse oximetry Heart rate Systolic And Diastolic Provider Name and Address Organization Details Last Updated DateTime 152.4 cm 23.5 kg/m2 41524.8 g 98 % 98 % 73 /min 102/70 mm[Hg] Molly Hendrickson MA [facility] 5 10:33:23 Date Recorded Body height Body mass index (BMI) Body weight Body temperature Oxygen saturation Oxygen saturation in Arterial blood by Pulse oximetry Heart rate Systolic And Diastolic Provider Name and Address Organization Details Last Updated DateTime 5 152.4 cm 23.3 kg/m2 15268.8 9 g 98.2 [degF] 98 % 98 % 104 /min 98/62 mm[Hg] Moustapha Milian MA [facility] 5 14:53:31 Date Recorded Body height Provider Name an d Address Organization Details Last Updated DateTime 10/28/2024 152.4 cm Concha Ortiz MA [facility] 10/28/2024 10:09:48 Date Recorded Body mass index (BMI) Body weight Heart rate Oxygen saturation Oxygen saturation in Arterial blood by Pulse oximetry Systolic And Diastolic Provider Name and Address Organization Details Last Updated DateTime 5 23.3 kg/m2 28476.9 3 g 72 /min 98 % 98 % 100/66 mm[Hg] Molly Hendrickson MA [facility] 5 10:27:15 Social History Question Answer Notes LastModified by Organizat ion Details LastModified Time Tobacco Smoking Status [facility] 07/19/2022 09:42:07 Do You Have An Advance Directive? No Information not available 08/11/2024 Are You Blind Or Do You Have Difficulty Seeing? No Information not available 08/11/2024 What Is Your Level Of Caffeine Consumption? None Information not available 08/11/2024 Are You Deaf Or Do You Have Serious Difficulty Hearing? No Information not available 08/11/2024 What Type Of Diet Are You Following? REGULAR Information not available 08/11/2024 Are There Any Guns Present In Your Home? No Information not available 08/11/2024 What Was The Date Of Your Most Recent Tobacco Screening? 10/28/2024 [email or web address] Information not available 10/28/2024 How Many Children Do You Have? 1 Information not available 08/11/2024 Do You Use Your Seat Belt Or Car Seat Routinely? Yes Information not available 08/11/2024 Do You Have Smoke And Carbon Monoxide Detectors In Your Home? Yes Information not available 08/11/2024 Are You Passively Exposed To Smoke? No Information not available 08/11/2024 Do You Use Sunscreen Routinely? No Information not available 08/11/2024 Has Tobacco Cessation Counseling Been Provided? No Information not available 07/19/2022 Sex: Unknown Functional Status Question Answer Note LastModified by Organizat ion Details LastModified Time Do you use any illicit or recreational drugs? No Information not available 07/19/2022 Do you or have you ever used any other forms of tobacco or nicotine? No Information not available 07/19/2022 What is your level of alcohol consumption? None Information not available 07/19/2022 Are you currently employed? No Information not available 08/11/2024 Are you able to care for yourself? Yes Information not available 08/11/2024 What is your exercise level? None Information not available 08/11/2024 Mental Status None recorded. Family History Relationship Description Onset Age of this Age Resolved Age Notes LastModified by Organization Details LastModified Time Father No current problems or disability [email or web address] Not available 07/19 09:41:49 Mother No current problems or disability [email or web address] Not available 07/19 09:41:49 Medical History No medical history recorded. Gynecological History Statement/Question Response Flow Heavy Date of LMP 10/23/2024 Menses Monthly Y Duration of Flow (days) 3 Age at Menarche 12 Current Control Method None LMP Definite Obstetrics History GPAL:G 1 P 1 0 0 1 Type Value Full Term 1 Living 1 Total 1 Immunizations Vaccine Type Date Status Note Provider Arturo nolan and Address Organization Details Recorded Time Tdap 10/04/2023 completed Zoila Oneal MA [facility], [facility] 10/04/2023 12:31:16 Past Encounters Encounter ID Performer Location Encounter Start Date Encounter Closed Date Diagnosis/Indication Diagnosis SNOMED-CT Code Diagnosis ICD10 Code Diagnosis Note [id number] MD Brenton Antoine (Adult Med) [address] [place] [address] 07/19/2022 09:22:28 07/20/2022 10:09:04 Pain in pelvis 27540210 R10.2 Female infertility 21471 08 N97.8 Dysuria 56982615 R30.0 Vaginitis 19764242 N76.0 [id number] WILLARD HEART DO [facility] (CLINICAL TECHNICIAN) [address] [place] [address] 06/21/2023 12:06:38 06/22/2023 15:37:30 Routine care 587807621 Z34.90 yo femaleHigh -risk : noFirst dating ultrasound completed: first trimesterD ating US consistent with LMP: yesEDD: based on LMP Pre-eclamp nate risk: moderate (2 or more: nulliparit y, >10 years between pregnancie s, BMI > 30, FH pre-E in 1st degree relative, low SES, black race, age 35 or greater, h/o LBW or SGA, prior adverse outcome, IVF ) PMH: complicate d by: None : no BMI: normal Recommende d weight gain: BMI 18.5-24.9 25-35 lbs Depression screen: 1st trimester US: normal Labs (CBC, blood type and screen, HIV, hepatitis B antigen, hepatitis C antibody, RPR, MMRV immunity antibodies , urinalysis with culture, gonorrhea, chlamydia, trichomona s, UDS): ordered Last Pap: Unknown. Will complete Abnormal Lab: Risk for tuberculos is: low Discussed genetic testing (Quad screen, NIPT, CF, SMA): Discuss at 16 week visit MFM referral: noHealthy [facility] Follow-up: 4week{s} - Bedside US demonstrat ed SLIUP measuring 13.4. So will keep dates from LMP since only off by two days- Daily and asa- IPN labs ordered- Discussed healthy lifestyle- Discussed s/s of miscarriag e- Met with [facility] [id number] WILLARD HEART [facility] (CLINICAL TECHNICIAN) [address] [place] [address] 07/19/2023 14:07:57 07/24/2023 14:23:52 Routine care [id number] Z34.88 yo femaleHigh -risk : noFirst dating ultrasound completed: first trimesterD ating US consistent with LMP: yesEDD: based on LMP Pre-eclamp nate risk: moderate (2 or more: nulliparit y, >10 years between pregnancie s, BMI > 30, FH pre-E in 1st degree relative, low SES, black race, age 35 or greater, h/o LBW or SGA, prior adverse outcome, IVF ) PMH: complicate d by: None : no BMI: normal Recommende d weight gain: BMI 18.5-24.9 25-35 lbs Depression screen: 1st trimester US: normal Labs (CBC, blood type and screen, HIV, hepatitis B antigen, hepatitis C antibody, RPR, MMRV immunity antibodies , urinalysis with culture, gonorrhea, chlamydia, trichomona s, UDS): reviewed, normal Last Pap: Unknown. Will complete Risk for tuberculos is: low Discussed genetic testing (Quad screen, NIPT, CF, SMA): [facility]dered today [facility] Follow-up: 4week{s}- Genetic testing ordered today- Daily and asa- Discussed healthy lifestyle- Discussed s/s of miscarriag e- Met with [facility] [id number] WILLARD HEART [facility] (CLINICAL TECHNICIAN) [address] [place] [address] 07/31/2023 10:17:38 08/02/2023 16:26:51 Routine care [id number] Z34.88 yo femaleHigh -risk : noFirst dating ultrasound completed: first trimesterD ating US consistent with LMP: yesEDD: based on LMP Pre-eclamp nate risk: moderate (2 or more: nulliparit y, >10 years between pregnancie s, BMI > 30, FH pre-E in 1st degree relative, low SES, black race, age 35 or greater, h/o LBW or SGA, prior adverse outcome, IVF ) PMH: complicate d by: None : no BMI: normal Recommende d weight gain: BMI 18.5-24.9 25-35 lbs Depression screen: negative 1st trimester US: normal Labs (CBC, blood type and screen, HIV, hepatitis B antigen, hepatitis C antibody, RPR, MMRV immunity antibodies , urinalysis with culture, gonorrhea, chlamydia, trichomona s, UDS): reviewed, normal Last Pap: Unknown. Will complete Risk for tuberculos is: low Discussed genetic testing (Quad screen, NIPT, CF, SMA): NIPT normal MFM referral: noHealthy [facility] Follow-up: 4week{s}- Anatomy scan ordered- Daily and asa- Discussed healthy lifestyle- Discussed s/s of miscarriag e [id number] WILLARD HEART [facility] (CLINICAL TECHNICIAN) [address] [place] [address] 09/06/2023 15:03:36 09/07/2023 12:19:02 Routine care [id number] Z34.88 yo femaleHigh -risk : noFirst dating ultrasound completed: first trimesterD ating US consistent with LMP: yesEDD: based on LMP Pre-eclamp nate risk: moderate (2 or more: nulliparit y, >10 years between pregnancie s, BMI > 30, FH pre-E in 1st degree relative, low SES, black race, age 35 or greater, h/o LBW or SGA, prior adverse outcome, IVF ) PMH: complicate d by: None : no BMI: normal Recommende d weight gain: BMI 18.5-24.9 25-35 lbs Depression screen: negative 1st trimester US: normal 2nd trimester US: US @ 24.1. EFW 78th%ile, normal DINORA, 3 vessel cord, placenta previa, incomplete anatomy. Follow up US in 4 weeks for growth, completion of anatomy, and placentati on Labs (CBC, blood type and screen, HIV, hepatitis B antigen, hepatitis C antibody, RPR, MMRV immunity antibodies , urinalysis with culture, gonorrhea, chlamydia, trichomona s, UDS): reviewed, normal Last Pap: Unknown. Will complete Risk for tuberculos is: low Discussed genetic testing (Quad screen, NIPT, CF, SMA): NIPT normal MFM referral: noHealthy Start [facility] Follow-up: 4week{s}- Anatomy scan ordered- Daily and asa- Discussed healthy lifestyle- Discussed s/s of miscarriag e Placenta previa 12242201 O44.02 Bleeding precaution s and pelvic rest discussed. Repeat US in four weeks. [id number] WILLARD HEART DO [facility] (CLINICAL TECHNICIAN) [address] [place] [address] 10/04/2023 09:31:39 10/10/2023 09:14:56 Routine care 872626655 Z34.88 yo femaleHigh -risk : noFirst dating ultrasound completed: first trimesterD ating US consistent with LMP: yesEDD: based on LMP Pre-eclamp nate risk: moderate (2 or more: nulliparit y, >10 years between pregnancie s, BMI > 30, FH pre-E in 1st degree relative, low SES, black race, age 35 or greater, h/o LBW or SGA, prior adverse outcome, IVF ) PMH: complicate d by: Placenta previa : no BMI: normal Recommende d weight gain: BMI 18.5-24.9 25-35 lbs Depression screen: negative 1st trimester US: normal 2nd trimester US: US @ 24.1. EFW 78th%ile, normal DINORA, 3 vessel cord, placenta previa, incomplete anatomy. Follow up US in 4 weeks for growth, completion of anatomy, and placentati on Labs (CBC, blood type and screen, HIV, hepatitis B antigen, hepatitis C antibody, RPR, MMRV immunity antibodies , urinalysis with culture, gonorrhea, chlamydia, trichomona s, UDS): reviewed, normal Last Pap: Unknown. Will complete Risk for tuberculos is: low Discussed genetic testing (Quad screen, NIPT, CF, SMA): NIPT normal MFM referral: noHealthy [facility] Follow-up: 2week{s}- Due for repeat US - scheduled for today- 3T labs ordered- Daily and asa- Discussed healthy lifestyle- Discussed s/s of miscarriag e Placenta previa 94174117 O44.02 Bleeding precaution s and pelvic rest discussed. Repeat US in four weeks. Active or passive immunization [id number] Z23 [id number] WILLARD HEART DO [facility] (CLINICAL TECHNICIAN) [address] [place] [address] 10/25/2023 09:24:37 10/30/2023 12:59:44 Routine care 378812649 Z34.88 yo femaleHigh -risk : noFirst dating ultrasound completed: first trimesterD ating US consistent with LMP: yesEDD: based on LMP Pre-eclamp nate risk: moderate (2 or more: nulliparit y, >10 years between pregnancie s, BMI > 30, FH pre-E in 1st degree relative, low SES, black race, age 35 or greater, h/o LBW or SGA, prior adverse outcome, IVF ) PMH: complicate d by: Placenta previa : no BMI: normal Recommende d weight gain: BMI 18.5-24.9 25-35 lbs Depression screen: negative 1st trimester US: normal 2nd trimester US: US @ 24.1. EFW 78th%ile, normal DINORA, 3 vessel cord, placenta previa, incomplete anatomy. Follow up US in 4 weeks for growth, completion of anatomy, and placentati on. US @ 30.2. EFW 40th%ile, normal DINORA, normal anatomy, complete posterior placenta previa persists. Repeat US in four weeks. Labs (CBC, blood type and screen, HIV, hepatitis B antigen, hepatitis C antibody, RPR, MMRV immunity antibodies , urinalysis with culture, gonorrhea, chlamydia, trichomona s, UDS): reviewed, normal Last Pap: Unknown. Will complete Risk for tuberculos is: low Discussed genetic testing (Quad screen, NIPT, CF, SMA): NIPT normal MFM referral: noHealthy Start referral: [facility] Health: no- Care transferre d to OB given persistent placenta previa- Daily and asa- Discussed healthy lifestyle- Discussed s/s of miscarriag e Placenta previa 19358556 O44.02 Bleeding precaution s and pelvic rest discussed. Persisted at 4 week repeat US. Therefore, will refer to OB. Glucose to lerance test outside reference range 716981663 R73.09 Pt still has not completed 3 hr GTT. Pt states she will complete today. [id number] Sylvia Singh MD [facility] [address] [address] 08/11/2024 09:12:17 08/13/2024 14:22:04 Body mass index 20-24 - normal 919037775 Z68.24 BMI 24.4 Depression screening 171 012371 Z13.31 PHQ9- Negative (3 out of 27) Adult heal th examination 357044006 Z00.00 Routine labs today Impacted c erumen of bilateral ears 5403033745 158205 H61.23 Start Debrox 5 drops twice a day as needed Constipation 28688963 K5 9.00 Start MiraLax 17 g every day Headache 61696613 R51.9 Start ibuprofen 800 mg 3 times a day as needed for pain Paresthesia 04408971 R20 .2 Labs today Palpitations 98127084 R0 0.2 EKG ordered Referral to Cardiology [id number] Ga Diaz MD [facility] [place] [facility] [address] [place] [address] 09/16/2024 10:20:45 09/17/2024 16:55:50 Palpitations 98560589 R00.2 Atypical chest pain 1025 29036 R07.89 [id number] Sylvia Singh MD [facility] [address] [address] 09/04/2024 16:48:59 09/05/2024 14:22:11 Migraine without aura, not refractory 642981230 G43.009 start topiramate 25mg BIDc/w IBU 800mg PRN Upper abdominal pain 831 28064 R10.10 negative murphys signnegati ve Rovsing signU/S orderedC/w Miralax Body mass index 20-24 - normal 045010776 Z68.23 BMI 23.8 [id number] Ga Diaz MD [facility] [place] [facility] [address] [facility] [address] [place] [address] 10/28/2024 10:03:32 10/29/2024 11:31:43 Palpitations 66938385 R00.2 Atypical chest pain 1025 59247 R07.89 [id number] Mukul Hendrickson MD [facility] [address] [place] [address] 10/27/2024 14:45:18 10/27/2024 18:19:20 Migraine without aura, not refractory 723385984 G43.009 increased topiramate 25mg BID to 50mg QDIBU 800mg PRN not helping for breakthrou ghwill trial anaprox DS prn Upper abdominal pain 831 28292 R10.10 negative murphys signnegati ve Rovsing signU/S ordered-ge t asapGallst ones? Body mass index 20-24 - normal 385604758 Z68.23 BMI 23.3 Keratosis pilaris 499487 5 L85.8 Acute constipation 80032 9006 K59.00 May go back to [facility] rease fiber, fruits, veggies etc., may try Fiber one prn Increase daily water intake Health Concerns Section Related Observation LastModified by Organization Detai ls LastModified Time None Recorded Concern Status LastModified by Organization Details LastModified Time None Recorded Advance Directives Directive N: Payers Insurance Date Sequence Insurance Name Policy Number Policy Manrique Covered Member ID Manrique Member ID Guarantor Name 08/11/2024 2 [facility] ON OR AFTER 11/11/20 (MEDICAID REPLACEMENT - HMO) Luisa Phan [id number] Luisa Phan 11/06/2024 1 [employer] DOS ON OR AFTER 20 (MEDICAID REPLACEMENT - HMO) Luisa Fernandez [id number] Luisa Phan 08/11/2024 1 [place] [employer] PUBLIC [employer] Luisa Fernandez [id number] Luisa Phan 06/08/2023 1 *SELF PAY* Pedro Phan 08/16/2022 SLIDING FEE SCHEDULE - DISCOUNT Luisa Phan Notes Date Note Type Note Provider Name and Address Organization Details Recorded Time 5 text/html 29-year-old female here for general checkup. Patient has multiple complaints. Pt is c/o headaches for 1 month that are mostly R sided. Pt states they radiate to her neck and shoulders too. She states she feels pressure behind her eyes and then has some ringing in her ears that make her headache worse. She does not have any nausea, vomiting, phono/photophobia that occur. Pt is also c/o tingling of hands and feet that has been occurring for about 1 month as well. Constipation- sometimes 7 days without BM. Pt states she also has some abdominal bloating and sometimes feels some upper back pain. Pt c/o palpitations, states that she will be sitting down and all of a sudden her heart starts racing and she feels a lot of pressure in her chest. She c/o SOB when that happens. Pt denies any radiation to eric arms or diaphoresis during these epidoses. JIMMY MTZ PA-C Attn: Accounting[address] [place], [address], [facility] - [facility] 08/11/2024 10:03:50 5 text/html 29-year-old female here for follow-up migraines and constipation. Patient states ibuprofen does help but she has a headache still every single day. Patient endorses photophobia and phonophobia. Patient is complaining of upper abdominal pain. Patient states pain is not worse after or before eating. Patient denies diarrhea, bloody stools, fever, chills. JIMMY MTZ PA-C Attn: Accounting[address] [facility], [place], [address], [facility] - [facility] 09/04/2024 17:25:56 5 text/html 29-year-old female referred to me for cardiovascular evaluation. She is complaining of palpitation they occur intermittently lasts for few minutes sometimes associated with chest pain. She is also complaining of chest pain which is worsened with deep inspiration and coughing. She has no dizziness lightheadedness or syncope. All the information were obtained through the developmental behavioral physician. As she speaks only Nigerien. EKG09/15/2024:Sinus Rhythm,Low voltage in precordial leads.-RSR(V1) -nondiagnostic. LABS:08/11/24:A1C 5.6, TSH 0.984, wbc 4.9, hgb 13.5, hct 43.2, plt 271, glucose 98, BUN 5, creatinine 0.49, eGFR 129, sodium 144, K+ 4.8, calcium 9.4, AST 16, ALT 13, cholesterol 202, triglycerides 202, HDL 46, LDL 145 Ga Diaz MD Attn: Accounting[address] [facility], [place], [address], [facility] - [facility] 09/16/2024 10:55:25 5 text/html Abdominal PainReported bypatient.Location:RUQ; radiating; migration Quality:pain;cramping;burni ng;fullness;tender Severity:moderate Duration:intermittent Onset/Timing:wax/wane Context:food Modifying Factors:moving bowels Associated Symptoms:no fever; no chills; no blood in the urine; no heartburn; no shortness of breath Other:denies possible ; sexually active; LMP10/23/2024; does not use controlHeadacheReported bypatient.Quality:not the worst headache ever; similar to previous headaches Onset/Timing:better Context:not related to trauma Associated Symptoms:no vomiting; no sensitivity to light; tearing/watery eyes; no confusion; no slurred speech; no preceeding aura; no double vision; normal feeling/sensation; no motor paralysis; no dizziness; no sleep disturbances; no nosebleeds; no hoarseness; no sore throat; no hearing loss 29-year-old female here for follow-up migraines and constipation. Patient states ibuprofen does not help. She has a headache still every single day. Patient endorses photophobia and phonophobia. Patient is complaining of upper abdominal pain. Patient states pain is worse after eating fatty foods and radiates to the back. Patient denies diarrhea, bloody stools, fever, chills. She was not constipated while on miralax but since stopping she is constipated again. She did not get abd ultrasound done yet.She is c/o micropapules on upper arms, thighs and itchiness. CARLTON Harrison- Attn: Accounting[address] [place], [address], [place] - [facility] 10/27/2024 16:52:18 5 text/html 29-year-old female referred to me for cardiovascular evaluation. She is complaining of palpitation they occur intermittently lasts for few minutes sometimes associated with chest pain. She is also complaining of chest pain which is worsened with deep inspiration and coughing. She has no dizziness lightheadedness or syncope. All the information were obtained through the developmental behavioral physician. As she speaks only Nigerien. October 28, 2024: 29-year-old female who was complaining of palpitation had a event monitor which she wore for only 3 days during this monitoring. She was in sinus rhythm. She had occasional episodes of sinus tachycardia. She had no significant PACs and PVCs. She reported symptoms of palpitation did not correlate with arrhythmia. She is complaining of chest pain, neck pain and back pain. EKG09/15/2024:Sinus Rhythm,Low voltage in precordial leads.-RSR(V1) -nondiagnostic. LABS:09/16/24:sed rate :A1C 5.6, TSH 0.984, wbc 4.9, hgb 13.5, hct 43.2, plt 271, glucose 98, BUN 5, creatinine 0.49, eGFR 129, sodium 144, K+ 4.8, calcium 9.4, AST 16, ALT 13, cholesterol 202, triglycerides 202, HDL 46, LDL 145 CARDIAC TESTING:EVENT MONITOR 09/16/24-10/15/24:Patient was monitored for 2 days and 23 hours during this monitoring patient was predominantly in sinus rhythm. There was no atrial fibrillation flutter tachy or Cory arrhythmia was noted. Patient reported symptoms of lightheadedness and skipped heartbeat and racing correlated with sinus rhythm. During these episodes there was no significant tachybrady arrhythmia was noted. There was no significant PACs and PVCs were recorded. Unremarkable event monitor. Ga Diaz MD Attn: Accounting[address] [facility], [place], [address], [facility] - SI 10/28/2024 10:50:28 OBGyn Episode Ob Episode Information Episode Created Date Number of Fetuses Patient Bloodtype Patient rh Status Prepregnancy Weight lbs Domestic Partner Domestic Partner Phone Father Name Asset Protection Assistant Status 06/21/19 24 1 O Positive 120 CLOSED Fetus Data First Name Last Name Admitted to NICU Weight (g) Sex Living Outcome Pediatric Complications Fetus ID Race Codes Race Delivery Type 2267.96 F [id number] 2106-3 White Problems Problem Notes Nigerien speaking. Problem Name Start Date End Date Resolution Snomed Code Not e Placenta previa [id number] Burnette sfer care to OB. Glucose tolerance test outside reference range [id number] 3 hr GTT ord ered - pt completing today. Anthony Calculation Initial Anthony Date Initial Exam Date Initial Exam Provider Initial Ultrasound Date Last Menstrual Period Date Ultra Sound Weeks Gestation 12/25/2023 06/21/2023 eclardy 03/20/2023 0 Eighteen To Twenty Week Anthony Update Ultra Sound Date Fundal Height At Umbil Quickening Date Ultra Sound Latest Weeks Gestation Final Anthony Confirmed By Final Anthony Confirmed Date Final Anthony Date Ultra Sound Latest Days Gestation 0 12/25/19 24 0 Pre- Flowsheet Flowsheet Date 06/21/2023 Mason Score Blood Edema Fundus Height Fundus Units Glucose Ketones Leukocytes Nitrite Labor Signs Protein Cervic Dilation Cervic Effacement Cervic Station Type Weight in lbs Pre/Post Dialysis Refused With clothes 120.173357001648 BP Diastolic BP Location Tested BP Systolic BP Type 67 101 sitting Fetus Heart Rate Present A 146 Present Fetus Movement Comments Bedside US demonstrated SLIU P measuring 13.4. So will keep dates from LMP since only off by two days. IPN labs ordered. Met with healthy start. Follow up in four weeks. Flowsheet Date 07/19/2023 Mason Score Blood Edema Fundus Height Fundus Units Glucose Ketones Leukocytes Nitrite Labor Signs Protein Cervic Dilation Cervic Effacement Cervic Station Type Weight in lbs Pre/Post Dialysis Refused With clothes 122.551030388558 BP Diastolic BP Location Tested BP Systolic BP Type 70 104 sitting Fetus Heart Rate Present A 145 Present Fetus Movement Comments No concerns on exam. Genetic testing ordered. Flowsheet Date 07/31/2023 Mason Score Blood Edema Fundus Height Fundus Units Glucose Ketones Leukocytes Nitrite Labor Signs Protein Cervic Dilation Cervic Effacement Cervic Station Type Weight in lbs Pre/Post Dialysis Refused With clothes 126.335154855462 BP Diastolic BP Location Tested BP Systolic BP Type 71 108 sitting Fetus Heart Rate Present A 145 Present Fetus Movement Comments No concerns on exam. Anatomy scan ordered. Follow up in clinic in four weeks. Flowsheet Date 09/06/2023 Mason Score Blood Edema Fundus Height Fundus Units Glucose Ketones Leukocytes Nitrite Labor Signs Protein Cervic Dilation Cervic Effacement Cervic Station 25 cm Type Weight in lbs Pre/Post Dialysis Refused With clothes 132.254718467360 BP Diastolic BP Location Tested BP Systolic BP Type 74 109 sitting Fetus Heart Rate Present A 155 Present Fetus Movement Comments No concerns on exam. Follow up in clinic in four weeks. Repeat US for growth and placentation in four weeks. Flowsheet Date 10/04/2023 Mason Score Blood Edema Fundus Height Fundus Units Glucose Ketones Leukocytes Nitrite Labor Signs Protein Cervic Dilation Cervic Effacement Cervic Station 28 cm Type Weight in lbs Pre/Post Dialysis Refused With clothes 138.248524014772 BP Diastolic BP Location Tested BP Systolic BP Type 69 105 sitting Fetus Heart Rate Present A 145 Present Fetus Movement Comments Repeat US to evaluate placen ta location scheduled for today. 3T labs and tdap done today. No concerns on exam. Follow up in clinic in two weeks. Flowsheet Date 10/25/2023 Mason Score Blood Edema Fundus Height Fundus Units Glucose Ketones Leukocytes Nitrite Labor Signs Protein Cervic Dilation Cervic Effacement Cervic Station 31 cm Type Weight in lbs Pre/Post Dialysis Refused Weight 141.174339061587 BP Diastolic BP Location Tested BP Systolic BP Type 68 99 sitting Fetus Heart Rate Present A 145 Present Fetus Movement Comments Persistent placenta previa s hown on US. Will transfer care to OB. Pt still needing to complete 3 hr GTT - will do today. Menstrual History Last Menstrual Date Menses Monthly On Bcp Conception Prior Menses Frequency Hcg Plus Date Menarche Onset Age 1103/20/2023 Genetic Screening And Infection History Question Response Note Patient's Age Will Be 35 Years Or Older At Estim ated Date of Delivery false Thalassemia (Hebrew, Greenlandic, Mediterranean, Or Background): MCV < 80 false Neural Tube Defect (Meningomyelocele, Spina Bifi da, Or Anencephaly) false Congenital Heart Defect false Down Syndrome false Brennon-Sachs (eg, Anabaptism, Cajun, Uruguayan-Mills) f alse Elvira Disease false Sickle Cell Disease Or Trait () false Hemophilia Or Other Blood Disorders false Muscular Dystrophy false Cystic Fibrosis false Pomfret's Chorea false Mental Retardation/Autism false If Yes, Was Person Tested For Fragile X? false Other Inherited Genetic Or Chromosomal Disorder false Maternal Metabolic Disorder (eg, Type 1 Diabetes , PKU) false Patient Or Baby's Father Had A Child With Defects Not Listed Above false Recurrent Loss, Or A Stillbirth false Medications (including Suppl ements, Vitamins, Herbs, OTC Drugs), Illicit/Recreational Drugs, Alcohol false If Yes, Agent(s) And Strength/Dosage false Any Other Genetic History false Live With Someone With TB Or Exposed To TB false Patient Or Partner Has History Of Genital Herpes false Rash Or Viral Illness Since Last Menstrual Perio d false History Of STD, Gonorrhea, Chlamydia, HPV, Syphi lis false Other Infection History false History of HIV false History of Hepatitis false Prior GBS-infected child false Delivery Information Delivery Date Delivery Type Labor Anesthesia Weeks Gestation Incision Type Labor Labor Length Hrs Delivered By Post Complications Tubal Sterilization Discharge Date Comments [address] [facility] Discharge Information Feeding Method Contraceptive Method Maternal HG B and HCT Levels
[2024-11-18 08:27] VITALS: BP 119/78; PULSE 75; RESP 18; TEMP 36.9; O2SAT 100
--- OUTSIDE RECORDS SUMMARY | 2024-11-18 08:45 | XMS_ITS | Clinical Summary ---
Author Organization [facility] Address [address] [place] [address] Care Team Providers Care Ecmo Specialist Name Role Phone Unknown, Provider Primary Care Provider Unavaila ble Source Comments [facility],non-owned Affiliates and Associated Physician Practices is amultiple site organization consisting of ambulatory clinics and hospital sitesin [place], [place], [place] and [place]. This disclosure is being madepursuant to the Care Everywhere program and may not contain all information available regarding this patient. Last updated 18.[facility] Social History Tobacco Use Types Packs/Day Years [...] patient's age to complete this topic Insurance Member Subscriber Plan / Payer (Ef fective 2023-Present) Name:Luisa Steward Relation to Subscriber:Self Name:Luisa Steward Payer ID:[id number] (NAIC) Group ID:Not on file Type:Medicaid Managed Care Address: [address] [address] Care Teams Ecmo Specialist Relationship Specialty Start Date End Date Unknown, Provider PCP - General 09/05/23
[2024-11-18 08:49] LABS: BEDSIDEPREGUCG Negative (Negative)
[2024-11-18 08:51] LABS: Hematocrit 42.2 % (37.0-47.0); Hemoglobin 13.6 g/dL (12.0-15.0); Immature Granulocyte Percent A 0.2 % (0-0.5); Lymphocytes Absolute Auto 1.48 K/mm3 (0.9-3.2); Mean Corpuscular HGB Conc 32.2 g/dl (32-36); Mean Corpuscular Hemoglobin 29.1 pg (26-34); Mean Corpuscular Volume 90.4 fl (80-100); Nucleated Red Blood Cells Absolute Auto 0.000 K/mm3 (0.0-0.012); Nucleated Red Blood Cells Perc 0.0 % (0.0-0.2); Platelet Count Result 260 k/mm3 (150-375); Red Blood Count 4.67 M/mm3 (4.2-5.4); White Blood Count 5.2 K/mm3 (4.5-10.0)
[2024-11-18 08:55] LABS: Add Urine Microscopic? YES; Appearance Urine Clear (Clear); Glucose Urine UA Negative (Negative); Leukocyte Esterase Ur Negative LEU/UL (Negative); Nitrate Urine Negative (Negative); Non Pathogenic Casts 0-2; Specific Grav Ur 1.005 (1.001-1.035)
--- NOTE | 2024-11-18 09:01 | ED_ITS ---
HPI - Abdominal Pain General Chief Complaint: Abdominal Pain Stated Complaint: R side pain Source: patient Mode of arrival: ambulatory Limitations: no limitations History of Present Illness HPI narrative: 29 YEARS OLD FEMALE CAME TO THE ED BY PRIVATE CAR WITH HER FAMILY COMPLAINING RIGHT UPPER QUADRANT PAIN, DULL ACHING STARTED 2 DAYS AGO GOT WORSE OVER THE LAST 24 HOURS ASSOCIATED WITH NAUSEA. SHE DENIES ANY FEVER OR CHILLS OR VOMITING OR DIARRHEA OR CONSTIPATION, SHE TAKES TYLENOL NEEDED, SHE DENIES SMOKING OR DRINKING OR USING DRUGS. NO HISTORY OF ABDOMINAL SURGERY, CURRENTLY ON HER MINUTES WERE CYCLE. PATIENT DENIED RADIATION OF PAIN, WORSE WITH EATING, NOTHING MAKE IT BETTER. Related Data Allergies Allergy/AdvReac Type Severity Reaction Status Date / Time No Known Allergies Allergy Verified 11/18/24 08:30 Review of Systems 2 Review of Systems: All systems reviewed & are unremarkable except as noted in HPI and below Exam 2 Narrative: GENERAL APPEARANCE: WELL-DEVELOPED, WELL-NOURISHED SKIN: NORMAL COLOR HEAD: NORMOCEPHALIC, NONTRAUMATIC EYES: CLEAR CONJUNCTIVA ENT: OROPHARYNX NORMAL, EARS NORMAL, NOSE NORMAL NECK: SUPPLE, NONTENDER CHEST AND RESPIRATORY: AIRWAY PATENT, NO RESPIRATORY DISTRESS, NO ACCESSORY MUSCLE USE HEART: REGULAR RATE/RHYTHM ABDOMEN: SOFT, DIFFUSE TENDERNESS, NO ORGANOMEGALY, QUIET BOWEL SOUNDS VASCULAR: NORMAL PERIPHERAL PULSES, NORMAL CAPILLARY REFILL. MUSCULOSKELETAL: NORMAL RANGE OF MOTION, NONTENDER BACK NEUROLOGIC: ALERT AND ORIENTED ?3, VETERINARIAN HELPER IS NORMAL TESTED, NO GROSS MOTOR DEFICIT Course Vital Signs Vital signs: Vital Signs Temperature 36.9 C 11/18/24 08:27 Pulse Rate 75 11/18/24 08:27 Respiratory Rate 18 11/18/24 08:27 Blood Pressure 119/78 11/18/24 08:27 Pulse Oximetry 100 11/18/24 08:27 Oxygen Delivery Room Air 11/18/24 08:27 Temperature 36.9 C 11/18/24 08:27 Pulse Rate 79 11/18/24 09:22 Respiratory Rate 20 11/18/24 09:22 Blood Pressure 120/69 11/18/24 09:22 Pulse Oximetry 100 11/18/24 09:22 Oxygen Delivery Room Air 11/18/24 08:27 MDM - Abdominal Pain MDM Narrative Medical decision making narrative: PATIENT PRESENTS WITH ABDOMINAL PAIN VITAL SIGNS ARE STABLE PHYSICAL EXAMINATION SHOWING DIFFUSE ABDOMINAL TENDERNESS MAINLY UPPER ABDOMEN BILATERALLY DIFFERENTIAL DIAGNOSIS INCLUDE GASTRITIS, ESOPHAGITIS, CHOLECYSTITIS PANCREATITIS, COLITIS, DIVERTICULITIS, CONSTIPATION, URINARY TRACT INFECTION. BLOOD WORKUP TODAY INCLUDES CBC, CMP, LIPASE SHOWED INSIGNIFICANT ABNORMALITIES URINALYSIS SHOWED 3+ BLOOD, PATIENT ON HER CYCLE RIGHT NOW CT ABDOMEN AND PELVIS WITH IV CONTRAST SHOWED POSSIBLE COLITIS DIAGNOSIS ABDOMINAL PAIN, COLITIS-SUSPECTED DISCHARGED ON AUGMENTIN THE PT WAS DISCHARGED TO HOME.THE PT,S CONDITION UPON DISCHARGE WAS FAIR,EDUCATION WAS PROVIDED TO THE PT IN REFERENCE TO THE FINAL IMPRESSION,DISCHARGE STUDY RESULTS,TREATMENT,PROGNOSIS AND NEED FOR FOLLOW UP . Lab Data 11/18/24 08:42 11/18/24 08:42 Labs: Lab Results 11/18/24 11/18/24 Range/Units 08:42 08:45 WBC 5.2 (4.5-10.0) K/mm3 RBC 4.67 (4.2-5.4) M/mm3 Hgb 13.6 (12.0-15.0) g/dL Hct 42.2 (37.0-47.0) % MCV 90.4 (80-100) fl MCH 29.1 (26-34) pg MCHC 32.2 (32-36) g/dl RDW 13.1 (11.5-14.5) % Plt Count 260 (150-375) k/mm3 MPV 11.6 H (7.4-10.4) fl Immature Gran % (Auto) 0.2 (0-0.5) % Neut % (Auto) 58.5 (45.5-73.1) % Lymph % (Auto) 28.4 (18.3-44.2) % [place] % (Auto) 6.1 (2.6-8.5) % Eos % (Auto) 6.0 H (0-4.4) % Baso % (Auto) 0.8 (0.2-1.2) % Lymph # (Auto) 1.48 (0.9-3.2) K/mm3 [place] # (Auto) 0.3 (0.1-0.6) K/mm3 Eos # (Auto) 0.3 (0-0.3) K/mm3 Baso # (Auto) 0.0 (0.0-0.1) K/mm3 Abs Immat Gran (auto) 0.01 (0.00-0.031) K/mm3 Absolute Neuts (auto) 3.1 (1.3-6.7) K/mm3 Absolute Nucleated RBC 0.000 (0.0-0.012) K/mm3 Nucleated RBC % 0.0 (0.0-0.2) % Sodium 142 (137-145) mmol/L Potassium 3.7 (3.4-5.0) mmol/L Chloride 109 H (98-107) mmol/L Carbon Dioxide 23 (22-30) mmol/L Anion Gap 10 (4-12) mmol/L BUN 4 L (7-17) mg/dL Creatinine 0.51 L (0.7-1.0) mg/dL Estim Creat Clear Calc 96 ml/min Estimated GFR > 60 (59 - ) Glucose 98 (65-110) mg/dL Calcium 9.1 (8.4-10.2) mg/dL Total Bilirubin 0.1 L (0.2-1.3) mg/dL AST 30 (14-36) U/L ALT 15 (6-35) U/L Alkaline Phosphatase 59 (38-126) U/L Total Protein 7.9 (6.3-8.2) g/dL Albumin 4.4 (3.5-5.1) g/dL Lipase 70 (23-300) U/L Urine Color Yellow (Yellow) Urine Appearance Clear (Clear) Urine pH 7.5 (5.0-9.0) Ur Specific [place] 1.005 (1.001-1.035) Urine Protein Negative (Negative) mg/dL Urine Glucose (UA) Negative (Negative) mg/dL Urine Ketones Negative (Negative) mg/dL Ur Blood (Man) 3+ H (Negative) Urine Nitrate Negative (Negative) Urine Bilirubin Negative (Negative) Urine Urobilinogen 0.2 (<2.0) mg/dL Leukocyte Esterase Rfl Negative (Negative) CHAKA/UL Urine RBC >100 H (0-2) /hpf Urine WBC 0-5 (0-3) /hpf Ur Squamous Epith Cells None seen (Few) /hpf Urine Bacteria None seen /hpf Urine Casts 0-2 POC Urine HCG, Qual Negative (Negative) Imaging Data Radiologist's impression: ITS Impressions Abdomen/Pelvis CT 11/18/24 09:40 Impression: Mild wall thickening of the sigmoid colon. Correlate for infectious/inflammatory colitis versus stercoral proctitis. Associated constipation. Probable small bilateral ovarian cysts. Critical Care Time Critical Care Time Critical Care Time: No Discharge Plan Discharge Clinical Impression: Abdominal pain, Colitis Patient Disposition: Home Condition: Stable Instructions: Antibiotic Form, Diverticulitis Diet (ED), Abdominal Pain (ED), Colitis (ED) Additional Instructions: RETURN IF SYMPTOMS ARE WORSENING , CALL YOUR FAMILY PHYSICIAN FOR APPOINTMENT, TAKE TYLENOL NEEDED FOR ACHES AND PAIN, CONTINUE HOME MEDICATIONS. DO NOT TAKE ANTI-INFLAMMATORY MEDICINE Patient Language: Maltese Prescriptions: New amoxicillin-pot clavulanate [Augmentin] 500-125 mg tablet 1 tablet PO Q8H Qty: 21 0RF dicyclomine 20 mg tablet 20 mg PO QID PRN (Reason: abdominal pain) Qty: 20 0RF No Action ibuprofen 800 mg tablet 800 mg PO TID PRN (Reason: pain) Qty: 20 0RF Follow-up/Referrals: Jag Amos MD [Primary Care Provider] -
[2024-11-18 09:02] LABS: Alanine Aminotransferase 15 U/L (6-35); Albumin Level 4.4 g/dL (3.5-5.1); Alkaline Phosphatase 59 U/L (38-126); Anion Gap 10 mmol/L (4-12); Aspartate Amino Transferase 30 U/L (14-36); Bilirubin,Total 0.1 mg/dL (0.2-1.3); Blood Urea Nitrogen 4 mg/dL (7-17); Calcium 9.1 mg/dL (8.4-10.2); Carbon Dioxide 23 mmol/L (22-30); Chloride 109 mmol/L (98-107); Estimated CRCL calculation 96 ml/min; Estimated Glomerular Filt Rate > 60; Glucose 98 mg/dL (65-110); Lipase 70 U/L (23-300); Potassium 3.7 mmol/L (3.4-5.0); Sodium 142 mmol/L (137-145); Total Protein 7.9 g/dL (6.3-8.2)
[2024-11-18 09:22] VITALS: BP 120/69; PULSE 79; RESP 20; O2SAT 100
[2024-11-18] MEDS: SODIUM CHLORIDE 0.9% IV 1,000 ML 999 ML IV CONT (09:22)
[2024-11-18 10:52] VITALS: BP 102/67; PULSE 62; RESP 20; O2SAT 100
== END 2024-11-18 11:07 | disposition home or self-care (01) ==
PROVIDERS: Emergency Provider Emergency Medicine; PCP Emergency Medicine
DX: K52.9 Noninfective gastroenteritis and colitis, unspecified (principal); R10.11 Right upper quadrant pain
CPT/HCPCS: 36415; 74177; 80053; 81001; 81025; 83690; 85025; 96360; 99284; J7030; Q9967